=== PATIENT | female | born 1975 | race Caucasian/White ===

== ENCOUNTER 2019-01-15 21:22 | Emergency (ER) | payer SELFPAY ==
--- NOTE | 2019-01-15 23:07 | ED.PDOC ---
History of Present Illness - General Chief Complaint: Neuro Symptoms/Deficits Stated Complaint: Dizzy, light-headed, hit head on pool slide Time Seen by Provider: 01/15/19 23:02 Source: patient Exam Limitations: no limitations - History of Present Illness Initial Comments: Mrya Gardner 43 y/o female stated going down the pool slide and back of her head hit the pool slide as she landed on the ground at about 2000H today.Denies LOC,blurry vision,nausea/vomiting,neck pains or hip pains but sharp pain back of head. Timing/Duration: 1-3 hours, constant Severity: moderate Improving Factors: nothing Worsening Factors: movement Associated Symptoms: other - see hpi Allergies/Adverse Reactions: Allergies Iodine Allergy (Verified 12/24/18 22:41) Lisinopril Allergy (Verified 12/24/18 22:41) Home Medications: Ambulatory Orders Amoxicillin & Pot Clavulanate [Augmentin Tab] 875 mg PO BID #14 tab 12/25/18 Review of Systems - Review of Systems Constitutional: States: no symptoms reported EENTM: States: no symptoms reported Respiratory: States: no symptoms reported Cardiology: States: no symptoms reported Gastrointestinal/Abdominal: States: no symptoms reported Genitourinary: States: no symptoms reported Musculoskeletal: States: no symptoms reported Skin: States: no symptoms reported Neurological: States: see HPI, headache Past Medical History (General) - Patient Medical History Hx Seizures: Yes Hx Stroke: No Hx Dementia: No Hx Asthma: Yes Hx of COPD: No Hx Cardiac Disorders: No Hx Congestive Heart Failure: No Hx Pacemaker: No Hx Hypertension: Yes Hx Thyroid Disease: No Hx Diabetes: No Hx Gastroesophageal Reflux: No Hx Renal Disease: No Hx Cancer: No Hx of HIV: No Hx Hepatitis C: No Hx MRSA: No Surgical History: cholecystectomy - Vaccination History Hx Tetanus, Diphtheria Vaccination: No Hx Influenza Vaccination: No Hx Pneumococcal Vaccination: No Immunizations Up to Date: No - Social History Hx Tobacco Use: No Hx Alcohol Use: No Hx Physical Abuse: No Hx Emotional Abuse: No Hx Suspected Abuse: No - Female History Patient is a Female of Child Bearing Age (10 -59 yrs old): Yes Hx Last Menstrual Period: 12/07/18 Patient : Yes - U/A in ER positive Family Medical History - Family History Mother Family History: Unknown Living Status: Hx Family Asthma: Yes - brothers Hx Cardiac Disease: Yes - brother Hx Family Cancer: Yes Hx Family;Other: Father of [place] Physical Exam - Physical Exam General Appearance: Alert, Comfortable, No apparent distress Eye Exam: bilateral normal Ears, Nose, Throat: hearing grossly normal, normal ENT inspection, normal pharynx Neck: non-tender, full range of motion, supple, normal inspection Respiratory: chest non-tender, lungs clear, normal breath sounds, no respiratory distress Cardiovascular/Chest: normal peripheral pulses, regular rate, rhythm, no murmur Peripheral Pulses: radial,right: 2+, radial,left: 2+ Gastrointestinal/Abdominal: normal bowel sounds, non tender, soft, no organomegaly Back Exam: no CVA tenderness, no vertebral tenderness Extremity: no pedal edema, no calf tenderness Skin Exam: other - scalp tenederness back of head Progress - Progress Progress: 01/15/19 23:10 Last Vital Signs Temp 98.7 F 01/15/19 21:24 Pulse 106 H 01/15/19 21:24 Resp 16 01/15/19 21:24 BP 141/88 01/15/19 21:24 Pulse Ox 96 01/15/19 21:24 - Results/Orders Results/Orders: Laboratory Tests 01/15/19 01/15/19 22:00 22:00 Urine Color Yellow Urine Appearance Clear Urine pH 6.0 Ur Specific [place] 1.020 Urine Protein Negative Urine Glucose (UA) Negative Urine Ketones Negative Urine Blood Trace-lysed H Urine Nitrite Negative Urine Bilirubin Negative Urine Urobilinogen 0.2 Ur Leukocyte Esterase Negative Urine RBC 0 Urine WBC 4 H Ur Epithelial Cells 3-5 Urine Bacteria Rare Urine HCG, Qual Positive Departure - Departure Clinical Impression: Elevated serum hCG Scalp contusion Qualifiers: Encounter type: initial encounter Qualified Code(s): S00.03XA - Contusion of s calp, initial encounter Headache Qualifiers: Headache type: unspecified Headache chronicity pattern: unspecified pattern Intractability: not intractable Qualified Code(s): R51 - Headache Time of Disposition: 23:13 Disposition: Discharge to Home or Self Care Condition: Fair Departure Forms: ED Discharge - Pt. Copy, Patient Portal Self Enrollment Instructions: Contusion (DC) Home Medications: Ambulatory Orders Amoxicillin & Pot Clavulanate [Augmentin Tab] 875 mg PO BID #14 tab 12/25/18 Additional Instructions: Ice pack to affected area 15 minutes 3 x a day during waking hours only for 3-4 days;Return to Emergency room as needed;Need to make appointment with Heating Unit Mechanic BECK[facility];May take Tylenol %00 mg 3 x a day as needed for pain/headache
[2019-01-15 23:14] VITALS: BP 152/95; O2SAT 98
[2019-01-15] MEDS ORDERED: ACETAMINOPHEN 325 MG TAB PO ONE (23:14)
[2019-01-15 23:28] VITALS: TEMP 98.6
== END 2019-01-15 23:25 | disposition home or self-care (01) ==
LOC: ER 21:22
DX: O9A.219 Injury, poisoning and certain other consequences of external causes complicating pregnancy, unspecified trimester (principal); S00.03XA Contusion of scalp, initial encounter; O99.519 Diseases of the respiratory system complicating pregnancy, unspecified trimester; J45.909 Unspecified asthma, uncomplicated; O10.919 Unspecified pre-existing hypertension complicating pregnancy, unspecified trimester; I10 Essential (primary) hypertension; O09.529 Supervision of elderly multigravida, unspecified trimester; Z32.01 Encounter for pregnancy test, result positive; Z3A.00 Weeks of gestation of pregnancy not specified; Z88.8 Allergy status to other drugs, medicaments and biological substances; Z91.041 Radiographic dye allergy status; W22.09XA Striking against other stationary object, initial encounter; Y92.34 Swimming pool (public) as the place of occurrence of the external cause

== ENCOUNTER 2019-01-17 | Emergency (ER) | payer SELFPAY | END 2019-01-17 16:31 | disposition home or self-care (01) ==

== ENCOUNTER 2019-02-14 01:36 | Emergency (ER) | payer SELFPAY ==
[2019-02-14] MEDS ORDERED: NITROGLYCERIN 0.4 MG 25 EA TAB SL ONE (01:44)
[2019-02-14] MEDS ORDERED: ASPIRIN (CHEWABLE) 81 MG TAB PO ONE (01:45)
[2019-02-14] MEDS ORDERED: HYDROcodone 7.5MG/APAP 325MG 1 EA TAB PO ONE (01:51)
[2019-02-14] MEDS ORDERED: POTASSIUM CHLORIDE ELIXIR 20 MEQ/15 ML UD PO ONE (02:15)
--- NOTE | 2019-02-14 02:17 | RAD ---
EXAM: XR Chest, 1 View CLINICAL HISTORY: The patient is 43 years old and is Female; chest pain TECHNIQUE: Frontal view of the chest. COMPARISON: Chest radiograph September 10, 2018. FINDINGS: LUNGS: Unremarkable. No consolidation. PLEURAL SPACE: Unremarkable. No pneumothorax. HEART: Unremarkable. No cardiomegaly. MEDIASTINUM: Unremarkable. BONES/JOINTS: Unremarkable. IMPRESSION: No acute cardiopulmonary process. Electronically signed by: Yelena Scott MD 02/14/2019 2:15 AM CDT
[2019-02-14 06:11] VITALS: TEMP 98
[2019-02-14] MEDS ORDERED: CIPROFLOXACIN 500 MG TAB PO ONE (06:31)
--- NOTE | 2019-02-14 06:39 | ED.PDOC ---
History of Present Illness - General Chief Complaint: Chest Pain/[place] Stated Complaint: chest pain Time Seen by Provider: 02/14/19 01:44 Source: patient Exam Limitations: no limitations - History of Present Illness Initial Comments: the patient is a 43-year-old female presenting to emergency room secondary to chest pain that started as she was lying down to go to bed. She has had atypical chest pains in the past and at some point someone wrote her for a bottle of nitroglycerin. She denies ever having had any catheterizations. No definitive known history of any coronary artery disease. She denies drug use. No palpitations. Chest pain is cramping in nature. It is largely reproducible with palpation over the pectoralis muscle on the left. No known trauma. The patient was recently and miscarried.chest pain is a little worse with movement of the left upper extremity but not so much with taking a deep breath. Timing/Duration: 1/2 hour Severity: moderate Improving Factors: nothing Worsening Factors: nothing Associated Symptoms: chest pain Allergies/Adverse Reactions: Allergies Iodine Allergy (Verified 02/14/19 01:45) Lisinopril Allergy (Verified 02/14/19 01:45) Home Medications: Ambulatory Orders Ciprofloxacin [Cipro] 500 mg PO BID #10 tab 02/14/19 Cyclobenzaprine HCl [Flexeril] 5 mg PO TID PRN #14 tab 02/14/19 Review of Systems - Review of Systems Constitutional: States: no symptoms reported EENTM: States: no symptoms reported Respiratory: States: no symptoms reported Cardiology: States: chest pain Gastrointestinal/Abdominal: States: no symptoms reported Genitourinary: States: no symptoms reported Musculoskeletal: States: see HPI Skin: States: no symptoms reported Neurological: States: anxiety Endocrine: States: no symptoms reported All other Systems: No Change from Baseline Past Medical History (General) - Patient Medical History Hx Seizures: Yes - Epileptic Hx Stroke: No Hx Dementia: No Hx Asthma: Yes Hx of COPD: No Hx Cardiac Disorders: Yes - Pt states she has an enlarged heart Hx Congestive Heart Failure: No Hx Pacemaker: No Hx Hypertension: Yes Hx Thyroid Disease: No Hx Diabetes: No Hx Gastroesophageal Reflux: No Hx Renal Disease: No Hx Cancer: No Hx of HIV: No Hx Hepatitis C: No Hx MRSA: No Surgical History: cholecystectomy - Vaccination History Hx Tetanus, Diphtheria Vaccination: Yes Hx Influenza Vaccination: Yes Hx Pneumococcal Vaccination: No Immunizations Up to Date: Yes - Social History Hx Tobacco Use: No Hx Chewing Tobacco Use: No Hx Alcohol Use: No Hx Substance Use: No Hx Substance Use Treatment: No Hx Depression: No Feels Threatened In Home Enviroment: No Feels Threatened In a Relationship: No Hx Physical Abuse: No Hx Emotional Abuse: No Hx Suspected Abuse: No - Activities of Daily Living Hospice Agency (if applicable):: None - Female History Patient is a Female of Child Bearing Age (10 -59 yrs old): Yes Hx Last Menstrual Period: 02/13/19 Patient : No - Triage Comment ED Triage Comment: Pt states that she began having chest pain that woke her up from sleep around 0020. Pt states that she took three nitroglycerin prior to arrival that did not help. Pt states that chest pain is radiating into her left arm. Pt states that pain is worse when pressure is put on her chest. Family Medical History - Family History Mother Family History: Unknown Living Status: Hx Family Asthma: Yes - brothers Hx Cardiac Disease: Yes - brother Hx Family Cancer: Yes Hx Family;Other: Father of [place] Physical Exam - Physical Exam General Appearance: Alert, Anxious, No apparent distress Eye Exam: bilateral normal Ears, Nose, Throat: hearing grossly normal, normal ENT inspection, normal pharynx Neck: full range of motion, supple Respiratory: lungs clear, normal breath sounds, no respiratory distress, no accessory muscle use, other - see history of present illness Cardiovascular/Chest: normal peripheral pulses, regular rate, rhythm, no edema Peripheral Pulses: radial,right: 2+, radial,left: 2+, dorsalis pedis,right: 2+, dorsalis pedis,left: 2+ Gastrointestinal/Abdominal: non tender - obese, soft Rectal Exam: deferred Back Exam: no CVA tenderness, no vertebral tenderness Extremity: normal range of motion, non-tender, normal inspection, no pedal edema, normal capillary refill Neurologic: alert, normal mood/affect - with the exception of being highly anxious, oriented x 3 Skin Exam: normal color Comments: EKG shows normal sinus rhythm at 75 bpm. Borderline R-wave progression. No definitive ST segment or T-wave changes indicative of ischemia. Normal QT interval. Chest x-ray shows no acute pathology. No evidence of fluid overload or infiltrate. Laboratory Results - last 24 hr 02/14/19 02/14/19 02/14/19 01:44 01:51 01:51 WBC 8.4 RBC 4.73 Hgb 13.2 Hct 39.6 MCV 83.6 MCH 27.8 MCHC 33.3 RDW 13.9 Plt Count 300 MPV 8.0 Absolute Neuts (auto) 5.50 Absolute Lymphs (auto) 2.10 Absolute Monos (auto) 0.60 Absolute Eos (auto) 0.20 Absolute Basos (auto) 0.10 Neutrophils % 65.0 Lymphocytes % 24.7 Monocytes % 7.6 Eosinophils % 2.1 Basophils % 0.6 PT 9.9 INR 0.99 PTT (SP) 24.7 Sodium 137 Potassium 3.3 L Chloride 105 Carbon Dioxide 23 Anion Gap 12.3 BUN 10 Creatinine 0.85 BUN/Creatinine Ratio 11.8 Random Glucose 115 H Serum Osmolality 273.8 L Calcium 9.1 Magnesium 2.0 Creatine Kinase 72 CK-MB (CK-2) 0.6 CK-MB (CK-2) % Not Reportable Troponin I < 0.02 B-Natriuretic Peptide 24.2 Serum HCG, Qual Negative Urine Color Urine Appearance Urine pH Ur Specific [place] Urine Protein Urine Glucose (UA) Urine Ketones Urine Blood Urine Nitrite Urine Bilirubin Urine Urobilinogen Ur Leukocyte Esterase Urine RBC Urine WBC Ur Epithelial Cells Urine Bacteria Urine Opiates Screen Negative Urine Barbiturates Negative Ur Phencyclidine Scrn Negative U Amphetamin/Meth Scrn Negative U Benzodiazepines Scrn Negative U Cocaine Metab Screen Negative U Cannabinoids Screen Negative 02/14/19 02/14/19 03:00 05:33 WBC RBC Hgb Hct MCV MCH MCHC RDW Plt Count MPV Absolute Neuts (auto) Absolute Lymphs (auto) Absolute Monos (auto) Absolute Eos (auto) Absolute Basos (auto) Neutrophils % Lymphocytes % Monocytes % Eosinophils % Basophils % PT INR PTT (SP) Sodium Potassium Chloride Carbon Dioxide Anion Gap BUN Creatinine BUN/Creatinine Ratio Random Glucose Serum Osmolality Calcium Magnesium Creatine Kinase 62 CK-MB (CK-2) 0.5 CK-MB (CK-2) % Not Reportable Troponin I < 0.02 B-Natriuretic Peptide Serum HCG, Qual Urine Color Yellow Urine Appearance Sl cloudy Urine pH 6.0 Ur Specific [place] >= 1.030 Urine Protein 30 Urine Glucose (UA) Negative Urine Ketones Negative Urine Blood Trace-lysed H Urine Nitrite Positive H Urine Bilirubin Negative Urine Urobilinogen 0.2 Ur Leukocyte Esterase Trace H Urine RBC 0 Urine WBC 40-50 H Ur Epithelial Cells 1-3 Urine Bacteria 3+ H Urine Opiates Screen Urine Barbiturates Ur Phencyclidine Scrn U Amphetamin/Meth Scrn U Benzodiazepines Scrn U Cocaine Metab Screen U Cannabinoids Screen Vital Signs (72 hours) 02/14/19 02/14/19 02/14/19 01:42 01:45 01:49 Temperature 98.7 F Pulse Rate 83 Pulse Rate [ 83 83 Monitor] Respiratory 20 20 Rate Blood Pressure 147/90 [Right Arm] O2 Sat by Pulse 99 96 Oximetry 02/14/19 02/14/19 02/14/19 02:36 03:00 04:00 Temperature Pulse Rate Pulse Rate [ 74 60 70 Monitor] Respiratory 20 20 18 Rate Blood Pressure 144/98 128/83 133/81 [Right Arm] O2 Sat by Pulse 97 95 95 Oximetry 02/14/19 02/14/19 05:00 06:00 Temperature 98.0 F Pulse Rate 60 Pulse Rate [ 60 79 Monitor] Respiratory 18 18 Rate Blood Pressure 120/82 141/96 [Right Arm] O2 Sat by Pulse 96 96 Oximetry Progress - Progress Progress: 02/14/19 06:42 the patient is a 43-year-old female presenting with atypical chest pain that is most consistent clinically with pectoralis muscle spasm. The patient did have a repeat set of cardiac enzymes at 3 hours after arrival to make sure that there was no rise in heart enzymes which there were not. EKG and chest x-ray were also reassuring. she was also found to have mild hypokalemia which may contributing to the muscle spasm as well as mild dehydration based on urine concentration. Additionally she does have a urinary tract infection. The patient will be placed on ciprofloxacin for the urinary tract infection. Urine culture will be done. She needs to follow back up with her primary care doctor early in the coming week for a repeat urinalysis to indicate clearance. she will also be written for low-dose Flexeril for symptomatic relief of the muscle spasm. She does need to increase her fluid intake. she was given a dose of potassium here and this will need to be followed as an outpatient. She needs to follow up with her primary care doctor to get back on her routine medications. ER warnings were given for any significant worsening. 02/14/19 06:45 - EKG/XRAY/CT CT Ordered: No CT Interpretation Call Back: No Departure - Departure Clinical Impression: Cystitis, Atypical chest pain, Muscle spasm, Dehydration, mild, Hypokalemia Disposition: Discharge to Home or Self Care Condition: Fair Departure Forms: ED Discharge - Pt. Copy, Patient Portal Self Enrollment Instructions: Hypokalemia (DC), Dehydration, Adult (DC), Muscle Spasms (DC), Urinary Tract Infections in Adults Diet: bland diet Activity: increase activity as tolerated Prescriptions: Ciprofloxacin [Cipro] 500 mg PO BID #10 tab Cyclobenzaprine HCl [Flexeril] 5 mg PO TID PRN #14 tab PRN Reason: Muscle Spasms Home Medications: Ambulatory Orders Ciprofloxacin [Cipro] 500 mg PO BID #10 tab 02/14/19 Cyclobenzaprine HCl [Flexeril] 5 mg PO TID PRN #14 tab 02/14/19 Additional Instructions: the patient is a 43-year-old female presenting with atypical chest pain that is most consistent clinically with pectoralis muscle spasm. The patient did have a repeat set of cardiac enzymes at 3 hours after arrival to make sure that there was no rise in heart enzymes which there were not. EKG and chest x-ray were also reassuring. she was also found to have mild hypokalemia which may contributing to the muscle spasm as well as mild dehydration based on urine concentration. Additionally she does have a urinary tract infection. The patient will be placed on ciprofloxacin for the urinary tract infection. Urine culture will be done. She needs to follow back up with her primary care doctor early in the coming week for a repeat urinalysis to indicate clearance. she will also be written for low-dose Flexeril for symptomatic relief of the muscle spasm. She does need to increase her fluid intake. she was given a dose of p otassium here and this will need to be followed as an outpatient. She needs to follow up with her primary care doctor to get back on her routine medications. ER warnings were given for any significant worsening.
[2019-02-14 07:06] VITALS: BP 118/90; O2SAT 100
== END 2019-02-14 07:06 | disposition home or self-care (01) ==
LOC: ER 01:36
DX: R07.89 Other chest pain (principal); N30.90 Cystitis, unspecified without hematuria; M62.838 Other muscle spasm; E86.0 Dehydration; E87.6 Hypokalemia; G40.909 Epilepsy, unspecified, not intractable, without status epilepticus; I51.9 Heart disease, unspecified; J45.909 Unspecified asthma, uncomplicated; I10 Essential (primary) hypertension; Z82.49 Family history of ischemic heart disease and other diseases of the circulatory system; Z91.041 Radiographic dye allergy status; Z88.8 Allergy status to other drugs, medicaments and biological substances

== ENCOUNTER 2019-02-19 22:42 | Emergency (ER) | payer SELFPAY ==
[2019-02-19 23:05] VITALS: O2SAT 98
[2019-02-20] MEDS ORDERED: KETOROLAC TROMETHAMINE INJ 60 MG/2 ML VIAL IM ONE (01:01)
[2019-02-20] MEDS ORDERED: PENICILLIN BENZATHINE 1.2 MU 1.2 MU/2 ML SYG IM ONE (01:01)
--- NOTE | 2019-02-20 01:07 | ED.PDOC ---
History of Present Illness - General Chief Complaint: Dental/Mouth Stated Complaint: toothache Time Seen by Provider: 02/20/19 00:56 Source: patient Exam Limitations: no limitations - History of Present Illness Initial Comments: TOOTHACHE. TOOTH BROKE OFF 3 WKS AGO. WAS TO HAVE DENTAL APPT TODAY BUT CAR WASN'T WORKING. PT ADMITS TO NOT TAKING HER BP MEDS. Allergies/Adverse Reactions: Allergies Iodine Allergy (Verified 02/14/19 01:45) Lisinopril Allergy (Verified 02/14/19 01:45) Home Medications: Ambulatory Orders Amlodipine Besylate 02/19/19 Dilantin 02/19/19 Metoprolol Succinate 02/19/19 Amoxicillin & Pot Clavulanate [Augmentin] 875 mg PO BID #20 tab 02/20/19 Review of Systems - Review of Systems Constitutional: Denies: chills, fever EENTM: Denies: ear pain, nose pain Respiratory: States: no symptoms reported Cardiology: States: no symptoms reported Gastrointestinal/Abdominal: States: no symptoms reported Genitourinary: States: no symptoms reported Musculoskeletal: States: no symptoms reported Skin: States: no symptoms reported Neurological: States: no symptoms reported Endocrine: States: no symptoms reported Hematologic/Lymphatic: States: no symptoms reported All other Systems: Reviewed and Negative Past Medical History (General) - Patient Medical History Hx Seizures: Yes - Epileptic Hx Stroke: No Hx Dementia: No Hx Asthma: Yes Hx of COPD: No Hx Cardiac Disorders: Yes - Pt states she has an enlarged heart Hx Congestive Heart Failure: No Hx Pacemaker: No Hx Hypertension: Yes Hx Thyroid Disease: No Hx Diabetes: No Hx Gastroesophageal Reflux: No Hx Renal Disease: No Hx Cancer: No Hx of HIV: No Hx Hepatitis C: No Hx MRSA: No Surgical History: cholecystectomy - Vaccination History Hx Tetanus, Diphtheria Vaccination: Yes Hx Influenza Vaccination: Yes Hx Pneumococcal Vaccination: No - Social History Hx Tobacco Use: No Hx Chewing Tobacco Use: No Hx Alcohol Use: No Hx Substance Use: No Hx Substance Use Treatment: No Hx Depression: No Hx Physical Abuse: No Hx Emotional Abuse: No Hx Suspected Abuse: No - Female History Hx Last Menstrual Period: 02/13/19 Patient : No - Triage Comment ED Triage Comment: Patient states her tooth broke off 3 days ago and missed her dental appointment today. She is also out of her blood pressure medication for months and has elevated BP Family Medical History - Family History Mother Family History: Unknown Living Status: Hx Family Asthma: Yes - brothers Hx Cardiac Disease: Yes - brother Hx Family Cancer: Yes Hx Family;Other: Father of [place] Physical Exam - Physical Exam General Appearance: Comfortable, Other - IS ASLEEP IN THE ROOM. Eye Exam: bilateral normal Ear Exam: bilateral ear: TM normal Nasal Exam: normal inspection Throat Exam: dental tenderness, other - L MANDIBLAR MOLAR TOOTH IS FRACTURED. BLACKENED WITH DENTAL DECAY. EXQUISTELY TTP. PT HAS VERY POOR DENTITION AND SEVERAL TEETH MISSING. Neck: non-tender, full range of motion, supple, normal inspection Skin Exam: normal color, warm/dry Progress - Progress Progress: 02/20/19 01:12 DENTAL CARIES - ABX. Departure - Departure Clinical Impression: Dental caries, Odontalgia Disposition: Discharge to Home or Self Care Condition: Good Departure Forms: ED Discharge - Pt. Copy, Patient Portal Self Enrollment Instructions: DI for Dental Pain Diet: resume usual diet Activity: increase activity as tolerated Prescriptions: Amoxicillin & Pot Clavulanate [Augmentin] 875 mg PO BID #20 tab Home Medications: Ambulatory Orders Amlodipine Besylate 02/19/19 Dilantin 02/19/19 Metoprolol Succinate 02/19/19 Amoxicillin & Pot Clavulanate [Augmentin] 875 mg PO BID #20 tab 02/20/19 Additional Instructions: Please resume taking your home blood pressure medications. Please keep the dentist appointment for next Monday for definitive care of the toothache.
[2019-02-20 01:29] VITALS: BP 177/110; TEMP 98.1
== END 2019-02-20 01:29 | disposition home or self-care (01) ==
LOC: ER 22:42
DX: K02.9 Dental caries, unspecified (principal); S02.5XXA Fracture of tooth (traumatic), initial encounter for closed fracture; K08.109 Complete loss of teeth, unspecified cause, unspecified class; G40.909 Epilepsy, unspecified, not intractable, without status epilepticus; I10 Essential (primary) hypertension; J45.909 Unspecified asthma, uncomplicated; X58.XXXA Exposure to other specified factors, initial encounter; Y92.9 Unspecified place or not applicable; Z79.899 Other long term (current) drug therapy; Z91.041 Radiographic dye allergy status; Z88.8 Allergy status to other drugs, medicaments and biological substances
CPT/HCPCS: J0561; J1885

== ENCOUNTER 2019-05-17 17:46 | Emergency (ER) | payer SELFPAY ==
[2019-05-17 18:22] VITALS: TEMP 97.9
--- NOTE | 2019-05-17 18:54 | RAD ---
EXAM DESCRIPTION: XR Chest, 2 Views CLINICAL HISTORY: 43 years Female cough, sore throat, hx asthma TECHNIQUE: Two views of the chest. COMPARISON: No prior exams provided for comparison. FINDINGS: The lungs are clear without focal consolidation, effusion, or pneumothorax. The cardiomediastinal silhouette and central pulmonary vasculature are normal. No acute osseous abnormalities. IMPRESSION: No acute cardiopulmonary abnormalities. Electronically signed by: Radha Isaac MD 05/17/2019 6:53 PM CDT
--- NOTE | 2019-05-17 19:33 | ED.PDOC ---
History of Present Illness - General Chief Complaint: Respiratory Problem Stated Complaint: cough,body aches Time Seen by Provider: 05/17/19 18:19 Source: patient Exam Limitations: no limitations - History of Present Illness Initial Comments: the patient is a 43-year-old female presenting to emergency room secondary tocough congestion and mild shortness of breath for the last 2-3 days. She does have a history of asthma but has been taking care of that fairly well. She does have a history of seasonal allergies. There are multiple colds going around. She is not hypoxic or in respiratory distress. Timing/Duration: other - 2 days Severity: mild Improving Factors: nothing Worsening Factors: nothing Associated Symptoms: cough, shortness of breath - mild Allergies/Adverse Reactions: Allergies Iodine Allergy (Verified 02/14/19 01:45) Lisinopril Allergy (Verified 02/14/19 01:45) Home Medications: Ambulatory Orders predniSONE [Prednisone] 20 mg PO DAILY #3 tab 05/17/19 Review of Systems - Review of Systems Constitutional: States: malaise EENTM: States: nose congestion, throat pain - mild Respiratory: States: cough, short of breath - mild Cardiology: States: no symptoms reported Gastrointestinal/Abdominal: States: no symptoms reported Genitourinary: States: no symptoms reported Musculoskeletal: States: no symptoms reported Skin: States: no symptoms reported Neurological: States: no symptoms reported Endocrine: States: no symptoms reported All other Systems: No Change from Baseline Past Medical History (General) - Patient Medical History Hx Seizures: Yes - Epileptic Hx Stroke: No Hx Dementia: No Hx Asthma: Yes Hx of COPD: No Hx Cardiac Disorders: Yes - Pt states she has an enlarged heart Hx Congestive Heart Failure: No Hx Pacemaker: No Hx Hypertension: Yes Hx Thyroid Disease: No Hx Diabetes: No Hx Gastroesophageal Reflux: No Hx Renal Disease: No Hx Cancer: No Hx of HIV: No Hx Hepatitis C: No Hx MRSA: No Surgical History: cholecystectomy - Vaccination History Hx Tetanus, Diphtheria Vaccination: Yes Hx Influenza Vaccination: No Hx Pneumococcal Vaccination: No - Social History Hx Tobacco Use: No Hx Chewing Tobacco Use: No Hx Alcohol Use: No Hx Substance Use: No Hx Substance Use Treatment: No Hx Depression: No Hx Physical Abuse: No Hx Emotional Abuse: No Hx Suspected Abuse: No - Female History Patient is a Female of Child Bearing Age (10 -59 yrs old): Yes Hx Last Menstrual Period: 02/13/19 Patient : No Family Medical History - Family History Mother Family History: Unknown Living Status: Hx Family Asthma: Yes - brothers Hx Cardiac Disease: Yes - brother Hx Family Cancer: Yes Hx Family;Other: Father of [place] Physical Exam - Physical Exam General Appearance: Alert, Comfortable, No apparent distress Eye Exam: bilateral normal Ears, Nose, Throat: hearing grossly normal, normal pharynx, nasal congestion Neck: full range of motion, supple Respiratory: lungs clear, normal breath sounds, no respiratory distress, no accessory muscle use Cardiovascular/Chest: normal peripheral pulses, regular rate, rhythm, no edema Peripheral Pulses: radial,right: 2+, radial,left: 2+, dorsalis pedis,right: 2+, dorsalis pedis,left: 2+ Gastrointestinal/Abdominal: non tender, soft Rectal Exam: deferred Back Exam: no CVA tenderness, no vertebral tenderness Extremity: non-tender, normal inspection, no pedal edema, no calf tenderness, normal capillary refill 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 The patient is continue her routine medications. I'm going to add prednisone 20 mg once daily for the next 3 days to help reduce symptoms. A humidifier at night may also help symptoms along with some ibuprofen. If she is having excessive runny nose and she can add Zyrtec daily to that. Chest x-ray shows no evidence of any significant bronchitis or pneumonia. No respiratory distress. Keep routine follow-up with primary care doctor. ayse acevedo [id number] Departure - Departure Clinical Impression: Asthma with exacerbation Qualifiers: Asthma severity: mild Asthma persistence: intermittent Qualified Code(s): J45.21 - Mild intermittent asthma with (acute) exacerbation Rhinitis Qualifiers: Rhinitis type: acute Qualified Code(s): J00 - Acute nasopharyngitis [common cold] Disposition: Discharge to Home or Self Care Condition: Fair Departure Forms: ED Discharge - Pt. Copy, Patient Portal Self Enrollment Instructions: DI for Asthma -- Adult Diet: regular diet Activity: increase activity as tolerated Prescriptions: predniSONE [Prednisone] 20 mg PO DAILY #3 tab Home Medications: Ambulatory Orders predniSONE [Prednisone] 20 mg PO DAILY #3 tab 05/17/19 Additional Instructions: the patient's a 43-year-old female presenting to the emergency room secondary to primarily upper respiratory symptoms and what is likely a mild asthma exacerbation. The patient is continue her routine medications. I'm going to add prednisone 20 mg once daily for the next 3 days to help reduce symptoms. A humidifier at night may also help symptoms along with some ibuprofen. If she is having excessive runny nose and she can add Zyrtec daily to that. Chest x-ray shows no evidence of any significant bronchitis or pneumonia. No respiratory distress. Keep routine follow-up with primary care doctor. the patient also does need to follow up with her primary care doctor for her blood pressure. It was moderately elevated here but possibly due to cold medications.
[2019-05-17 19:35] VITALS: BP 130/98; O2SAT 97
[2019-05-17] MEDS ORDERED: predniSONE 20 MG TAB PO ONE (19:35)
== END 2019-05-17 19:45 | disposition home or self-care (01) ==
LOC: ER 17:46
DX: J45.21 Mild intermittent asthma with (acute) exacerbation (principal); J00 Acute nasopharyngitis [common cold]; G40.909 Epilepsy, unspecified, not intractable, without status epilepticus; I10 Essential (primary) hypertension; Z91.041 Radiographic dye allergy status; Z88.8 Allergy status to other drugs, medicaments and biological substances
CPT/HCPCS: 71046; J7512

== ENCOUNTER 2019-06-05 23:35 | Emergency (ER) | payer SELFPAY ==
[2019-06-05] MEDS ORDERED: diazePAM 5 MG TAB PO ONE (23:39)
[2019-06-05] MEDS ORDERED: ACETAMINOPHEN W/COD #3 TAB 1 EA TAB PO ONE (23:39)
--- NOTE | 2019-06-05 23:42 | ED.PDOC ---
History of Present Illness - General Time Seen by Provider: 06/05/19 23:36 Source: patient, RN notes reviewed, Vital Signs reviewed, EMS notes reviewed, EMS Exam Limitations: no limitations - History of Present Illness Initial Comments: "My right knee locked up" States she was lying in bed 1 hour [employer] and suddenly right knee locked in extended position and has not been able to bend it. Denies any fall or trauma to her leg recently. Has had this happen in the past, but the last episode was 10 years ago. Took Tylenol at home w/o relief. Denies CP, calf pain, SOB. Allergies/Adverse Reactions: Allergies Iodine Allergy (Verified 02/14/19 01:45) Lisinopril Allergy (Verified 02/14/19 01:45) Home Medications: Ambulatory Orders predniSONE [Prednisone] 20 mg PO DAILY #3 tab 05/17/19 Review of Systems - Review of Systems Constitutional: Denies: chills, fever Respiratory: Denies: cough, short of breath Cardiology: Denies: chest pain, edema, palpitations, syncope Musculoskeletal: States: joint pain - right knee with decreased ROM All other Systems: Reviewed and Negative Past Medical History (General) - Patient Medical History Hx Seizures: Yes - Epileptic Hx Stroke: No Hx Dementia: No Hx Asthma: Yes Hx of COPD: No Hx Cardiac Disorders: Yes - Pt states she has an enlarged heart Hx Congestive Heart Failure: No Hx Pacemaker: No Hx Hypertension: Yes Hx Thyroid Disease: No Hx Diabetes: No Hx Gastroesophageal Reflux: No Hx Renal Disease: No Hx Cancer: No Hx of HIV: No Hx Hepatitis C: No Hx MRSA: No - Vaccination History Hx Tetanus, Diphtheria Vaccination: Yes Hx Influenza Vaccination: No Hx Pneumococcal Vaccination: No - Social History Hx Tobacco Use: No Hx Chewing Tobacco Use: No Hx Alcohol Use: No Hx Substance Use: No Hx Substance Use Treatment: No Hx Depression: No Hx Physical Abuse: No Hx Emotional Abuse: No Hx Suspected Abuse: No - Female History Hx Last Menstrual Period: 02/13/19 Patient : No Family Medical History - Family History Mother Family History: Unknown Living Status: Hx Family Asthma: Yes - brothers Hx Cardiac Disease: Yes - brother Hx Family Cancer: Yes Hx Family;Other: Father of [place] Physical Exam - Physical Exam General Appearance: Alert, Comfortable, No apparent distress Neck: non-tender, full range of motion Cardiovascular/Respiratory: regular rate, rhythm, normal breath sounds, no respiratory distress Gastrointestinal/Abdominal: non-tender, other - NTTP, no guarding Back: normal inspection, no vertebral tenderness Skin: normal color, warm/dry Comments: Right knee is held in extended position. It is diffusely TTP with no erythema, warmth or effusion. Has 2+ DP and PT pulses. No calf tenderness. She is able to flex right knee to about 20 degrees, then stops due to pain. Progress - Progress Progress: 06/05/19 23:45 Presents for right knee pain and "locked up" feeling. No sign of DVT. This occured while lying still in bed, no trauma or injury. Appears to be more muscle spasm related by exam and history, but will get xray to r/o dislocation/fracture. 06/06/19 00:14 Patient has improved ROM post Valium. xray negative. RICE, WBAT, crutches given. will f/u with Dr. Swenson in 2-3 days if not improving. - EKG/XRAY/CT XRAY: knee Xray Comments: no fracture or dislocation Departure - Departure Clinical Impression: Right knee pain Qualifiers: Chronicity: acute Qualified Code(s): M25.561 - Pain in right knee Time of Disposition: 00:15 Disposition: Discharge to Home or Self Care Condition: Good Departure Forms: ED Discharge - Pt. Copy, Patient Portal Self Enrollment Instructions: DI for Knee Pain Activity: walking as tolerated Referrals: Donavon Swenson MD [Active Staff] - 1-2 Days Home Medications: Ambulatory Orders predniSONE [Prednisone] 20 mg PO DAILY #3 tab 05/17/19 Comments: Take Ibuprofen as needed for pain
[2019-06-06 00:35] VITALS: BP 154/78; TEMP 98.1; O2SAT 96
--- NOTE | 2019-06-06 10:17 | RAD ---
EXAM DESCRIPTION: Knee,Right 2 or More Views CLINICAL HISTORY: 43 years Female, Knee Pain COMPARISON: None. FINDINGS: No evidence for an acute fracture of the right knee. No dislocation. Mild degenerative changes noted. No joint effusion. A few small rounded well corticated calcific densities in the soft tissues posteriorly are noted. IMPRESSION: No evidence for an acute fracture of the right knee. Electronically signed by: Tavares Moya MD 06/06/2019 12:09 AM [facility]
== END 2019-06-06 00:36 | disposition home or self-care (01) ==
LOC: ER 23:35
DX: M25.561 Pain in right knee (principal); G40.909 Epilepsy, unspecified, not intractable, without status epilepticus; J45.909 Unspecified asthma, uncomplicated; I10 Essential (primary) hypertension; Z88.8 Allergy status to other drugs, medicaments and biological substances; Z91.041 Radiographic dye allergy status

== ENCOUNTER 2019-07-13 19:17 | Emergency (ER) | payer SELFPAY ==
[2019-07-13] MEDS ORDERED: IPRATROPIUM/ALBUTEROL 3 ML VIAL NEB ONE (19:22)
[2019-07-13] MEDS ORDERED: predniSONE 20 MG TAB PO ONE (19:47)
[2019-07-13] MEDS ORDERED: traMADol HCL 50 MG TAB PO ONE (19:47)
--- NOTE | 2019-07-13 19:56 | RAD ---
EXAM: XR Chest, 2 Views CLINICAL HISTORY: 43 years old Female; cough with chest pain. TECHNIQUE: Frontal and lateral views of the chest. COMPARISON: Similar examination performed 05/17/2019 which demonstrated no acute cardiopulmonary abnormality by report. FINDINGS: LUNGS: Lungs clear of new focal infiltrate or mass. PLEURAL SPACE: No increasing pleural fluid. No pneumothorax. HEART: Heart size stable. MEDIASTINUM: Unremarkable. BONES/JOINTS: No acute bony abnormality seen. IMPRESSION: - No acute cardiopulmonary pathology seen and no interval change from a similar examination performed 05/17/2019. Thank you for allowing us to participate in the care of this patient. Electronically signed by: Wali Han MD 07/13/2019 7:54 PM [employer]
--- NOTE | 2019-07-13 20:27 | ED.PDOC ---
History of Present Illness - General Chief Complaint: Respiratory Problem Stated Complaint: SOB, chest discomfort Time Seen by Provider: 07/13/19 19:21 Source: patient Exam Limitations: no limitations - History of Present Illness Initial Comments: the patient's a 43-year-old female presenting to emergency room secondary to symptoms of cough along with a mild sore throat and runny nose. It started this morning. Cough has been very persistent and harsh. The patient is an asthmatic and has been flaring a little bit. She is moving air well at this point. She has coughed to the point where her chest muscles are sore. She reports she has had a low-grade fever. She has a history of recurrent pneumonias apparently in the past.she does obviously have a laryngitis component. Timing/Duration: 24 hours Severity: moderate Improving Factors: nothing Worsening Factors: nothing Associated Symptoms: cough, fever/chills Allergies/Adverse Reactions: Allergies Iodine Allergy (Verified 07/13/19 19:56) Lisinopril Allergy (Verified 07/13/19 19:56) Home Medications: Ambulatory Orders Azithromycin 500 mg PO DAILY #5 tab 07/13/19 predniSONE [Prednisone] 20 mg PO DAILY #5 tab 07/13/19 Review of Systems - Review of Systems Constitutional: States: fever, malaise EENTM: States: nose congestion, throat pain Respiratory: States: cough Cardiology: States: no symptoms reported Gastrointestinal/Abdominal: States: no symptoms reported Genitourinary: States: no symptoms reported Musculoskeletal: States: no symptoms reported Skin: States: no symptoms reported Neurological: States: no symptoms reported Endocrine: States: no symptoms reported All other Systems: No Change from Baseline Past Medical History (General) - Patient Medical History Hx Seizures: Yes - Epileptic Hx Stroke: No Hx Dementia: No Hx Asthma: Yes Hx of COPD: No Hx Cardiac Disorders: Yes - Pt states she has an enlarged heart Hx Congestive Heart Failure: No Hx Pacemaker: No Hx Hypertension: Yes Hx Thyroid Disease: No Hx Diabetes: No Hx Gastroesophageal Reflux: No Hx Renal Disease: No Hx Cancer: No Hx of HIV: No Hx Hepatitis C: No Hx MRSA: No Surgical History: cholecystectomy - Vaccination History Hx Tetanus, Diphtheria Vaccination: Yes Hx Influenza Vaccination: No Hx Pneumococcal Vaccination: No - Social History Hx Tobacco Use: No Hx Chewing Tobacco Use: No Hx Alcohol Use: No Hx Substance Use: No Hx Substance Use Treatment: No Hx Depression: No Hx Physical Abuse: No Hx Emotional Abuse: No Hx Suspected Abuse: No - Female History Patient is a Female of Child Bearing Age (10 -59 yrs old): Yes Hx Last Menstrual Period: 02/13/19 Patient : No Family Medical History - Family History Mother Family History: Unknown Living Status: Hx Family Asthma: Yes - brothers Hx Cardiac Disease: Yes - brother Hx Family Cancer: Yes Hx Family;Other: Father of [place] Physical Exam - Physical Exam General Appearance: Alert, No apparent distress Eye Exam: bilateral normal Ears, Nose, Throat: hearing grossly normal, nasal congestion, pharyngeal erythema - mild Neck: full range of motion, supple Respiratory: no respiratory distress, no accessory muscle use, rhonchi Cardiovascular/Chest: normal peripheral pulses, regular rate, rhythm, no edema Peripheral Pulses: radial,right: 2+, radial,left: 2+ Gastrointestinal/Abdominal: non tender, soft Rectal Exam: deferred Back Exam: no CVA tenderness, no vertebral tenderness Extremity: normal range of motion, non-tender, normal inspection, no pedal edema, normal capillary refill 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 While this is most likely viral, patient will be covered for possible bacterial etiologies given her significant asthma history. She will be covered with azithromycin for next 5 days. Additionally she'll be written for prednisone for the asthma component as well. She does need to do her breathing treatments 2-3 times a day while she has this process in place. Motrin can be used to reduce symptoms, including chest discomfort from the cough, as well. She needs to keep herself well-hydrated. ER warnings are given for any acute worsening. Follow back up with primary care doctor towards the end of the week. a humidifier may provide some benefit. Liquid Robitussin can be used as a mild cough suppressant. ayse acevedo [id number] - Results/Orders Results/Orders: chest x-ray shows mild air trapping. No obviousinfiltrates. Laboratory Tests 07/13/19 07/13/19 07/13/19 19:21 19:21 19:22 WBC 8.5 RBC 4.97 Hgb 13.6 Hct 40.7 MCV 81.9 MCH 27.4 MCHC 33.5 RDW 13.7 Plt Count 315 MPV 8.2 Absolute Neuts (auto) 5.60 Absolute Lymphs (auto) 2.00 Absolute Monos (auto) 0.50 Absolute Eos (auto) 0.30 Absolute Basos (auto) 0.00 Neutrophils % 66.0 Lymphocytes % 23.7 Monocytes % 6.3 Eosinophils % 3.5 Basophils % 0.5 Sodium 136 Potassium 3.8 Chloride 104 Carbon Dioxide 25 Anion Gap 10.8 L BUN 12 Creatinine 0.79 BUN/Creatinine Ratio 15.2 Random Glucose 96 Serum Osmolality 271.6 L Calcium 9.0 Total Bilirubin 0.5 AST 24 ALT 25 Alkaline Phosphatase 80 Creatine Kinase 61 CK-MB (CK-2) 0.9 CK-MB (CK-2) % Not Reportable Troponin I < 0.02 B-Natriuretic Peptide 37.8 Serum Total Protein 7.6 Albumin 4.1 Globulin 3.5 Albumin/Globulin Ratio 1.2 Serum HCG, Qual Negative Departure - Departure Clinical Impression: Acute asthma, Bronchitis with acute wheezing, Laryngitis Disposition: Discharge to Home or Self Care Condition: Fair Departure Forms: ED Discharge - Pt. Copy, Patient Portal Self Enrollment Instructions: DI for Asthma -- Adult Diet: regular diet Activity: increase activity as tolerated Prescriptions: Azithromycin 500 mg PO DAILY #5 tab predniSONE [Prednisone] 20 mg PO DAILY #5 tab Home Medications: Ambulatory Orders Azithromycin 500 mg PO DAILY #5 tab 07/13/19 predniSONE [Prednisone] 20 mg PO DAILY #5 tab 07/13/19 Additional Instructions: the patient is a 43-year-old female presenting to emergency room with what appears to be laryngitis and bronchitis. While this is most likely viral, patient will be covered for possible bacterial etiologies given her significant asthma history. She will be covered with azithromycin for next 5 days. Additionally she'll be written for prednisone for the asthma component as well. She does need to do her breathing treatments 2-3 times a day while she has this process in place. Motrin can be used to reduce symptoms, including chest discomfort from the cough, as well. She needs to keep herself well-hydrated. ER warnings are given for any acute worsening. Follow back up with primary care doctor towards the end of the week. a humidifier may provide some benefit. Liquid Robitussin can be used as a mild cough suppressant.
[2019-07-13 20:53] VITALS: BP 155/98; TEMP 97; O2SAT 98
== END 2019-07-13 20:57 | disposition home or self-care (01) ==
LOC: ER 19:17
DX: J45.901 Unspecified asthma with (acute) exacerbation (principal); J04.0 Acute laryngitis; I10 Essential (primary) hypertension; I51.9 Heart disease, unspecified; G40.909 Epilepsy, unspecified, not intractable, without status epilepticus; Z91.041 Radiographic dye allergy status; Z88.8 Allergy status to other drugs, medicaments and biological substances
CPT/HCPCS: 71046; 80053; 82550; 82553; 83880; 84484; 84703; 85025; 87502; J7512; J7620

== ENCOUNTER 2019-10-28 14:57 | Emergency (ER) | payer SELFPAY ==
[2019-10-28] MEDS ORDERED: AZITHROMYCIN 250 MG TAB PO ONE (15:04)
[2019-10-28] MEDS ORDERED: predniSONE 20 MG TAB PO ONE (15:04)
--- NOTE | 2019-10-28 15:31 | RAD ---
EXAM DESCRIPTION: Chest,1 View CLINICAL HISTORY: 44 years Female, sob, cough 2 weeks COMPARISON: Previous study July 13, 2019 TECHNIQUE: AP portable chest. FINDINGS: Heart size is prominent with normal pulmonary vascularity. No consolidating infiltrate. No pulmonary mass or worrisome nodule. No pneumothorax or pleural effusion. Bones are unremarkable. IMPRESSION: No acute process is identified in the chest. Electronically signed by: Andry Sloan MD 10/28/2019 3:29 PM CDT
--- NOTE | 2019-10-28 16:04 | ED.PDOC ---
History of Present Illness - General Chief Complaint: Respiratory Problem Stated Complaint: shortness of breath Time Seen by Provider: 10/28/19 15:03 Source: patient Exam Limitations: no limitations - History of Present Illness Initial Comments: The patient is a 44-year-old female with a history of asthma presenting after what is essentially a two-week asthma exacerbation. She is doing an albuterol breathing treatment once every 8 hours. She does have some shortness of breath but is not hypoxic. She is not in respiratory distress. No fever. Cough is minimally productive. No runny nose or sore throat. No syncope or near syncope. The cough is very persistent. No rash. Chest pain only with cough. She has been out of her Flovent. No above average risk for coronavirus acquisition. Timing/Duration: other - 2 weeks Severity: moderate Improving Factors: nothing Worsening Factors: nothing Associated Symptoms: cough, shortness of breath Allergies/Adverse Reactions: Allergies Iodine Allergy (Verified 07/13/19 19:56) Lisinopril Allergy (Verified 07/13/19 19:56) Home Medications: Ambulatory Orders Azithromycin 500 mg PO DAILY #5 tab 07/13/19 predniSONE [Prednisone] 20 mg PO DAILY #5 tab 07/13/19 Azithromycin 500 mg PO DAILY #5 tab 10/28/19 Fluticasone Propionate Inhaler [Flovent 220 MCG Inhaler] 1 puff INH BID #1 inh 10/28/19 predniSONE [Prednisone] 20 mg PO DAILY #5 tab 10/28/19 Review of Systems - Review of Systems Constitutional: States: no symptoms reported EENTM: States: no symptoms reported Respiratory: States: cough, short of breath, wheezing Cardiology: Denies: chest pain - wi cough Gastrointestinal/Abdominal: States: no symptoms reported Genitourinary: States: no symptoms reported Musculoskeletal: States: no symptoms reported Skin: States: no symptoms reported Neurological: States: no symptoms reported Endocrine: States: no symptoms reported All other Systems: No Change from Baseline Past Medical History (General) - Patient Medical History Hx Seizures: Yes - Epileptic Hx Stroke: No Hx Dementia: No Hx Asthma: Yes Hx of COPD: No Hx Cardiac Disorders: Yes - Pt states she has an enlarged heart Hx Congestive Heart Failure: No Hx Pacemaker: No Hx Hypertension: Yes Hx Thyroid Disease: No Hx Diabetes: No Hx Gastroesophageal Reflux: No Hx Renal Disease: No Hx Cancer: No Hx of HIV: No Hx Hepatitis C: No Hx MRSA: No - Vaccination History Hx Tetanus, Diphtheria Vaccination: Yes Hx Influenza Vaccination: No Hx Pneumococcal Vaccination: No - Social History Hx Tobacco Use: No Hx Chewing Tobacco Use: No Hx Alcohol Use: No Hx Substance Use: No Hx Substance Use Treatment: No Hx Depression: No Hx Physical Abuse: No Hx Emotional Abuse: No Hx Suspected Abuse: No - Female History Patient is a Female of Child Bearing Age (10 -59 yrs old): Yes Hx Last Menstrual Period: 02/13/19 Patient : No Family Medical History - Family History Mother Family History: Unknown Living Status: Hx Family Asthma: Yes - brothers Hx Cardiac Disease: Yes - brother Hx Family Cancer: Yes Hx Family;Other: Father of [place] Physical Exam - Physical Exam General Appearance: Alert, Comfortable, No apparent distress Eye Exam: bilateral normal Ears, Nose, Throat: hearing grossly normal, normal ENT inspection Neck: full range of motion, supple Respiratory: no respiratory distress, no accessory muscle use, rhonchi, wheezing Cardiovascular/Chest: normal peripheral pulses, regular rate, rhythm, no edema Peripheral Pulses: radial,right: 2+, radial,left: 2+ Gastrointestinal/Abdominal: non tender, soft Rectal Exam: deferred Back Exam: no CVA tenderness, no vertebral tenderness Extremity: normal range of motion, non-tender, normal inspection, no pedal edema, normal capillary refill 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 Additionally she will be written for her Flovent inhaler. She will also be placed on 5 days of low-dose oral prednisone. She needs to increase her albuterol treatments to 1 treatment every 3 hours for the next 2 or 3 days. ER warnings are given. ayse [id number] - Results/Orders Results/Orders: cxr shows no acute pathology. flu negative Departure - Departure Clinical Impression: Asthma with exacerbation Qualifiers: Asthma severity: moderate Asthma persistence: persistent Qualified Code(s): J45.41 - Moderate persistent asthma with (acute) exacerbation Disposition: Discharge to Home or Self Care Condition: Fair Departure Forms: ED Discharge - Pt. Copy, Patient Portal Self Enrollment Instructions: DI for Asthma -- Adult Diet: regular diet Activity: increase activity as tolerated Prescriptions: Azithromycin 500 mg PO DAILY #5 tab Fluticasone Propionate Inhaler [Flovent 220 MCG Inhaler] 1 puff INH BID #1 inh predniSONE [Prednisone] 20 mg PO DAILY #5 tab Home Medications: Ambulatory Orders Azithromycin 500 mg PO DAILY #5 tab 07/13/19 predniSONE [Prednisone] 20 mg PO DAILY #5 tab 07/13/19 Azithromycin 500 mg PO DAILY #5 tab 10/28/19 Fluticasone Propionate Inhaler [Flovent 220 MCG Inhaler] 1 puff INH BID #1 inh 10/28/19 predniSONE [Prednisone] 20 mg PO DAILY #5 tab 10/28/19 Additional Instructions: The patient is a 44-year-old female presented emergency room with what is ess entially an extended asthma exacerbation likely triggered initially either by viral or environmental circumstances, compounded by running out of her Flovent. 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 Additionally she will be written for her Flovent inhaler. She will also be placed on 5 days of low-dose oral prednisone. She needs to increase her albuterol treatments to 1 treatment every 3 hours for the next 2 or 3 days. ER warnings are given.
[2019-10-28 16:22] VITALS: BP 114/93; TEMP 98.8; O2SAT 99
== END 2019-10-28 16:22 | disposition home or self-care (01) ==
LOC: ER 14:57
DX: J45.41 Moderate persistent asthma with (acute) exacerbation (principal); R07.9 Chest pain, unspecified; G40.909 Epilepsy, unspecified, not intractable, without status epilepticus; I10 Essential (primary) hypertension; Z79.899 Other long term (current) drug therapy; Z88.8 Allergy status to other drugs, medicaments and biological substances; Z91.041 Radiographic dye allergy status
CPT/HCPCS: 71045; 87502; J7512; Q0144

== ENCOUNTER 2019-12-16 21:07 | Emergency (ER) | payer OTHER ==
[2019-12-16] MEDS ORDERED: ALUM & MAG HYDROX-SIMETHICONE 30 ML, LIDOCAINE VISCOUS 2% 15 ML PO ONE ×2 (21:23)
[2019-12-16] MEDS ORDERED: SODIUM CHLORIDE 0.9% (FLUSH) 10 ML SYG IV PRN (21:23)
[2019-12-16] MEDS ORDERED: ONDANSETRON INJ 4 MG/2 ML VIAL IV ONE (21:23)
[2019-12-16] MEDS ORDERED: ALUM & MAG HYDROX-SIMETHICONE 30 ML UD ONE (21:48)
[2019-12-16] MEDS ORDERED: LIDOCAINE HCL 2% (MOUTH-THROAT) 15 ML UD ONE (21:48)
--- NOTE | 2019-12-16 21:49 | ED.PDOC ---
History of Present Illness - General Chief Complaint: Chest Pain/[place] Stated Complaint: mid chest pain sine 1945, 10 wks preg Time Seen by Provider: 12/16/19 21:23 Source: patient, RN notes reviewed, Vital Signs reviewed, EMS notes reviewed, family Exam Limitations: no limitations - History of Present Illness Initial Comments: This is a 44-year-old female with history of hypertension, 10 weeks by dates, presenting to the emergency department with chest pain onset approximately 7 PM tonight while walking with her fianc. Pain was sudden onset. She localizes pain to the epigastric and lower retrosternal area, nonradiating, no shortness of breath, no vomiting. She denies any history of GERD or gastritis, no previous pain with prior . She is G2, . She sees Dr. Bateman, and was seen in the office today for a quant hCG. She denies any pelvic pain or vaginal bleeding. No urinary symptoms. No previous cardiac history. She denies any recent cough, shortness of breath, URI symptoms, recent traveling or known COVID-19 exposures. She denies any recent leg swelling, no history of DVT/PE. She received 4 baby aspirin in route with EMS Aspirin was not given in the emergency department due to being given prior to arrival with EMS Worsening Factors: nothing Nitro Today/Relief: no nitro taken today Aspirin Treatment Today: 81 mg x 4 Allergies/Adverse Reactions: Allergies Iodine Allergy (Verified 12/16/19 21:23) Lisinopril Allergy (Verified 12/16/19 21:23) Home Medications: Ambulatory Orders Albuterol Inhaler [Ventolin Hfa Inhaler] 108 mcg IN DAILY PRN 10/28/19 Budesonide-Formoterol Fumarate [Symbicort] 1 aer IN DAILY 10/28/19 Famotidine [Pepcid Tab] 20 mg PO BID #30 tab 12/16/19 Review of Systems - Review of Systems Constitutional: Denies: chills, fever EENTM: Denies: double vision, nose pain, throat pain Respiratory: Denies: cough, orthopnea, short of breath, stridor Cardiology: States: chest pain. Denies: edema, syncope Gastrointestinal/Abdominal: Denies: abdominal pain, constipation, diarrhea, nausea, vomiting Genitourinary: Denies: dysuria, frequency, hematuria Musculoskeletal: Denies: back pain, joint pain, neck pain Skin: Denies: lesions, rash Neurological: Denies: headache, paresthesia, tingling, tremors Endocrine: States: no symptoms reported Hematologic/Lymphatic: States: no symptoms reported Past Medical History (General) - Patient Medical History Hx Seizures: Yes - Epileptic, last seizure was 5 years ago Hx Stroke: No Hx Dementia: No Hx Asthma: Yes Hx of COPD: No Hx Cardiac Disorders: Yes - Pt states she has an enlarged heart Hx Congestive Heart Failure: No Hx Pacemaker: No Hx Hypertension: Yes - doesn't take meds at this time Hx Thyroid Disease: No Hx Diabetes: No Hx Gastroesophageal Reflux: No Hx Renal Disease: No Hx Cancer: No Hx of HIV: No Hx Hepatitis C: No Hx MRSA: No Surgical History: cholecystectomy - Vaccination History Hx Tetanus, Diphtheria Vaccination: Yes Hx Influenza Vaccination: No Hx Pneumococcal Vaccination: No - Social History Hx Tobacco Use: No Hx Chewing Tobacco Use: No Hx Alcohol Use: No Hx Substance Use: No Hx Substance Use Treatment: No Hx Depression: No Hx Physical Abuse: No Hx Emotional Abuse: No Hx Suspected Abuse: No - Female History Hx Last Menstrual Period: 02/13/19 Patient : No Family Medical History - Family History Mother Family History: Unknown Living Status: Hx Family Asthma: Yes - brothers Hx Cardiac Disease: Yes - brother Hx Family Cancer: Yes Hx Family;Other: Father of [place] Physical Exam - Physical Exam General Appearance: Alert, Comfortable, No apparent distress Eyes, Ears, Nose, Throat Exam: PERRL/EOMI, normal ENT inspection, TMs normal Neck: non-tender, full range of motion, supple Respiratory: chest non-tender, lungs clear, normal breath sounds, no respiratory distress, no accessory muscle use Cardiovascular/Chest: normal peripheral pulses, regular rate, rhythm, no edema, no gallop, no JVD, no murmur Peripheral Pulses: radial,right: 2+, radial,left: 2+, dorsalis pedis,right: 2+, dorsalis pedis,left: 2+ Gastrointestinal/Abdominal: non tender, soft Extremity: normal range of motion, non-tender, normal inspection, no pedal edema, no calf tenderness Neurologic: no motor/sensory deficits, alert, normal mood/affect, oriented x 3 Skin Exam: normal color, warm/dry Progress - Progress Progress: 12/16/19 22:09 Rechecked. Patient reports complete relief after GI cocktail. EKG without ischemic changes, initial troponin negative. Suspect GI etiology. Will repeat troponin, if negative will discharge home with GERD warnings 12/16/19 23:46 Patient remains pain-free. No shortness of breath. Sats normal, vital signs normal. Strongly suspect GI source for her pain. Chest x-ray was interpreted as possible early pulmonary edema, although sats are normal and BNP is completely normal. Very low suspicion for CHF/cardiomyopathy in . Will start H2 magnolia and lifestyle modifications for GERD. Recommended follow- up with PCP in 3 to 5 days for recheck and for ongoing management of her . Strict warnings given to return the emergency room for worsening chest pain, shortness of breath, vomiting blood, blood in stool, fever, vaginal bleeding, or any other concerns. MDM: DDX: ACS, GERD, CHF, pneumonia, cardiomyopathy Patient reporting epigastric and lower chest pain in the setting of 10-week . Heart score is 1, low risk. Troponin negative x2. BNP normal. No clear acute process on chest x-ray. Pain completely resolved with a GI cocktail, strongly suspect GERD is most likely etiology for her symptoms. Will start H2 magnolia. Recommended follow-up with PCP/DRAMA CRITIC for ongoing observation and management of Ariel Warner DO [facility] #[id number] - Results/Orders Results/Orders: EKG reviewed by me at 2114. Normal sinus rhythm, rate of 81, normal axis, normal intervals, no ST segment elevations or depressions Chest x-ray reviewed personally by me at 2154. No acute process, no pneumothorax, no infiltrates EXAM DESCRIPTION: Chest,1 View CLINICAL HISTORY: 44 years Female chest pain COMPARISON: None TECHNIQUE: AP view of the chest was obtained. FINDINGS: Cardiac silhouette is enlarged. Central vessels are increased and indistinct. Patchy airspace opacity right lung base. No abnormal airspace opacity on left. No effusions bilaterally. No pneumothorax. IMPRESSION: Enlarged heart with bilateral perihilar infiltrate and atelectatic change. Developing pulmonary edema versus inflammatory process could have this appearance. Electronically signed by: Bhargavi Carbajal MD 12/16/2019 10:03 PM CDT 12/16/19 21:23 IV Care:Saline Lock per Protoc QSHIFT Telemetry .ONCE EKG Stat Pulse Ox Stat Laboratory Results - last 24 hr 12/16/19 12/16/19 12/16/19 21:23 21:32 21:32 WBC 7.8 RBC 4.76 Hgb 12.9 Hct 38.9 MCV 81.7 MCH 27.0 MCHC 33.1 RDW 14.9 H Plt Count 276 MPV 7.8 Absolute Neuts (auto) 5.10 Absolute Lymphs (auto) 1.90 Absolute Monos (auto) 0.70 Absolute Eos (auto) 0.10 Absolute Basos (auto) 0.00 Neutrophils % 65.4 Lymphocytes % 23.9 Monocytes % 8.7 Eosinophils % 1.6 Basophils % 0.4 Sodium 134 L Potassium 4.1 Chloride 104 Carbon Dioxide 22 Anion Gap 12.1 BUN 14 Creatinine 0.80 BUN/Creatinine Ratio 17.5 Random Glucose 104 Serum Osmolality 269.0 L Calcium 9.5 Total Bilirubin 0.3 AST 27 ALT 34 Alkaline Phosphatase 63 Troponin I < 0.02 B-Natriuretic Peptide 24.1 Serum Total Protein 6.9 Albumin 3.7 Globulin 3.2 Albumin/Globulin Ratio 1.2 Lipase 35 12/16/19 23:15 WBC RBC Hgb Hct MCV MCH MCHC RDW Plt Count MPV Absolute Neuts (auto) Absolute Lymphs (auto) Absolute Monos (auto) Absolute Eos (auto) Absolute Basos (auto) Neutrophils % Lymphocytes % Monocytes % Eosinophils % Basophils % Sodium Potassium Chloride Carbon Dioxide Anion Gap BUN Creatinine BUN/Creatinine Ratio Random Glucose Serum Osmolality Calcium Total Bilirubin AST ALT Alkaline Phosphatase Troponin I < 0.02 B-Natriuretic Peptide Serum Total Protein Albumin Globulin Albumin/Globulin Ratio Lipase Departure - Departure Clinical Impression: Acute chest pain, GERD (gastroesophageal reflux disease), 10 weeks gestation of Disposition: Discharge to Home or Self Care Condition: Good Departure Forms: ED Discharge - Pt. Copy, Patient Portal Self Enrollment Instructions: DI for Chest Pain, Acid Reflux (Gastroesophageal Reflux Disease) During Referrals: Kenneth Bateman MD [Primary Care Provider] - 1-5 Days Prescriptions: Famotidine [Pepcid Tab] 20 mg PO BID #30 tab Home Medications: Ambulatory Orders Albuterol Inhaler [Ventolin Hfa Inhaler] 108 mcg IN DAILY PRN 10/28/19 Budesonide-Formoterol Fumarate [Symbicort] 1 aer IN DAILY 10/28/19 Famotidine [Pepcid Tab] 20 mg PO BID #30 tab 12/16/19 Additional Instructions: Avoid eating within 2 hours of lying down or going to bed. Avoid bending over within 1 to 2 hours of meals. Avoid caffeine, chocolate, as these can increase the frequency of GERD symptoms. Sleep on an incline at night. Return to emergency room for worsening chest pain, shortness of breath, vomiting blood, blood in stool, vaginal bleeding, or any other concerns.
--- NOTE | 2019-12-16 22:05 | RAD ---
EXAM DESCRIPTION: Chest,1 View CLINICAL HISTORY: 44 years Female chest pain COMPARISON: None TECHNIQUE: AP view of the chest was obtained. FINDINGS: Cardiac silhouette is enlarged. Central vessels are increased and indistinct. Patchy airspace opacity right lung base. No abnormal airspace opacity on left. No effusions bilaterally. No pneumothorax. IMPRESSION: Enlarged heart with bilateral perihilar infiltrate and atelectatic change. Developing pulmonary edema versus inflammatory process could have this appearance. Electronically signed by: Bhargavi Carbajal MD 12/16/2019 10:03 PM CDT
[2019-12-17] VITALS: BP 144/90; TEMP 98.5; O2SAT 97
== END 2019-12-17 | disposition home or self-care (01) ==
LOC: ER 21:07
DX: O99.611 Diseases of the digestive system complicating pregnancy, first trimester (principal); K21.9 Gastro-esophageal reflux disease without esophagitis; O99.351 Diseases of the nervous system complicating pregnancy, first trimester; O10.911 Unspecified pre-existing hypertension complicating pregnancy, first trimester; O99.511 Diseases of the respiratory system complicating pregnancy, first trimester; J45.909 Unspecified asthma, uncomplicated; R07.9 Chest pain, unspecified; Z3A.10 10 weeks gestation of pregnancy; Z79.899 Other long term (current) drug therapy; Z88.8 Allergy status to other drugs, medicaments and biological substances
CPT/HCPCS: 36415; 71045; 80053; 83690; 83880; 84484; 85025; 93005; J2405

== ENCOUNTER 2019-12-22 17:05 | Emergency (ER) | payer OTHER ==
--- NOTE | 2019-12-22 17:17 | ED.PDOC ---
History of Present Illness - General Time Seen by Provider: 12/22/19 17:12 Source: patient, RN notes reviewed, Vital Signs reviewed, EMS notes reviewed Exam Limitations: no limitations - History of Present Illness Initial Comments: Pt is a 44 yo female, , 3 months by dates with OB care by Dr. Bateman, who presents to ED for pelvic pain and vaginal bleeding. States she had an appointment with Dr. Bateman last week who did an US and stated there was a gestational sac, but no viable fetus and diagnosed with inevitable miscarriage. She was told she would miscarry within the next 2 weeks and would have vaginal bleeding and cramping. States 30 minutes [employer]OWLING [employer]LEY [employer], she had vaginal spotting and crampy pelvic pain and called EMS to come to ED. Denies having to wear a pad or bleeding on clothes. Denies fever, chills, NVD or urinary symptoms. Allergies/Adverse Reactions: Allergies Iodine Allergy (Verified 12/16/19 21:23) Lisinopril Allergy (Verified 12/16/19 21:23) Home Medications: Ambulatory Orders Albuterol Inhaler [Ventolin Hfa Inhaler] 108 mcg IN DAILY PRN 10/28/19 Budesonide-Formoterol Fumarate [Symbicort] 1 aer IN DAILY 10/28/19 Famotidine [Pepcid Tab] 20 mg PO BID #30 tab 12/16/19 Acetaminophen W/ Codeine [Tylenol W/ CODEINE #3] 1 tablet PO Q6H PRN #14 12/22/19 Review of Systems - Review of Systems Constitutional: Denies: chills, fever EENTM: Denies: ear pain, nose congestion Respiratory: Denies: cough, short of breath Cardiology: Denies: chest pain, edema, palpitations, syncope Gastrointestinal/Abdominal: Denies: diarrhea, nausea, vomiting Genitourinary: States: see HPI. Denies: dysuria, frequency, hematuria Neurological: Denies: headache, paresthesia All other Systems: Reviewed and Negative Past Medical History (General) - Patient Medical History Hx Seizures: Yes - Epileptic, last seizure was 5 years ago Hx Stroke: No Hx Dementia: No Hx Asthma: Yes Hx of COPD: No Hx Cardiac Disorders: Yes - Pt states she has an enlarged heart Hx Congestive Heart Failure: No Hx Pacemaker: No Hx Hypertension: Yes - doesn't take meds at this time Hx Thyroid Disease: No Hx Diabetes: No Hx Gastroesophageal Reflux: No Hx Renal Disease: No Hx Cancer: No Hx of HIV: No Hx Hepatitis C: No Hx MRSA: No - Vaccination History Hx Tetanus, Diphtheria Vaccination: Yes Hx Influenza Vaccination: No Hx Pneumococcal Vaccination: No - Social History Hx Tobacco Use: No Hx Chewing Tobacco Use: No Hx Alcohol Use: No Hx Substance Use: No Hx Substance Use Treatment: No Hx Depression: No Hx Physical Abuse: No Hx Emotional Abuse: No Hx Suspected Abuse: No - Female History Hx Last Menstrual Period: 02/13/19 Patient : No Family Medical History - Family History Mother Family History: Unknown Living Status: Hx Family Asthma: Yes - brothers Hx Cardiac Disease: Yes - brother Hx Family Cancer: Yes Hx Family;Other: Father of [place] Physical Exam - Physical Exam General Appearance: Alert, No apparent distress Neck: non-tender, full range of motion, supple Cardiovascular/Respiratory: regular rate, rhythm, normal breath sounds, no respiratory distress Gastrointestinal/Abdominal: other - soft. Mild TTP suprapubic area. No guarding Back Exam: no CVA tenderness Extremity: normal range of motion, non-tender, no pedal edema, no calf tendern ess Neurologic: no motor/sensory deficits, alert, normal mood/affect Skin Exam: normal color Progress - Progress Progress: 12/22/19 18:47 Pt presents with palvic crampy and vaginal spotting. has had OB care with Dr. Bateman and had US last week showing nonviable IUP and inevitable miscarriage. Pain is controlled. Labs reassuring. No sign of inection at this time.US not available today, I do not think imaging would change treatment. Will DC with T#3 and take Motrin for pain. i have asked her to f/u with her OB tomorrow for recheck. SRP given. - Results/Orders Results/Orders: 12/22/19 17:13 IV:Start .ONCE URINALYSIS Stat Laboratory Results - last 24 hr 12/22/19 12/22/19 17:26 17:26 WBC 6.6 RBC 4.74 Hgb 12.8 Hct 38.5 MCV 81.2 MCH 27.1 MCHC 33.4 RDW 15.1 H Plt Count 271 MPV 7.5 Absolute Neuts (auto) 4.40 Absolute Lymphs (auto) 1.30 Absolute Monos (auto) 0.60 Absolute Eos (auto) 0.20 Absolute Basos (auto) 0.00 Neutrophils % 67.6 Lymphocytes % 20.0 Monocytes % 9.1 H Eosinophils % 2.6 Basophils % 0.7 Sodium 134 L Potassium 3.7 Chloride 107 Carbon Dioxide 21 Anion Gap 9.7 L BUN 14 Creatinine 0.76 BUN/Creatinine Ratio 18.4 Random Glucose 109 H Serum Osmolality 269.3 L Calcium 8.9 Beta HCG, Quant 80471.0 H Departure - Departure Clinical Impression: Inevitable , Pelvic pain Time of Disposition: 18:51 Disposition: Discharge to Home or Self Care Condition: Good Instructions: Miscarriage (DC) Diet: resume usual diet Activity: increase activity as tolerated Referrals: Kenneth Bateman MD [Primary Care Provider] - 1-2 Days Prescriptions: Acetaminophen W/ Codeine [Tylenol W/ CODEINE #3] 1 tablet PO Q6H PRN #14 PRN Reason: Pain Home Medications: Ambulatory Orders Albuterol Inhaler [Ventolin Hfa Inhaler] 108 mcg IN DAILY PRN 10/28/19 Budesonide-Formoterol Fumarate [Symbicort] 1 aer IN DAILY 10/28/19 Famotidine [Pepcid Tab] 20 mg PO BID #30 tab 12/16/19 Acetaminophen W/ Codeine [Tylenol W/ CODEINE #3] 1 tablet PO Q6H PRN #14 12/22/19 Additional Instructions: Your HCG today is 21,600. Follow up with your OB in 1-2 days for recheck.
[2019-12-22 17:44] VITALS: TEMP 97.8
[2019-12-22] MEDS ORDERED: ONDANSETRON INJ 4 MG/2 ML VIAL IV ONE (17:57)
[2019-12-22] MEDS ORDERED: MORPHINE SULFATE INJ 10 MG/ML VIAL IV ONE (17:57)
[2019-12-22 18:48] VITALS: O2SAT 99
[2019-12-22 19:05] VITALS: BP 155/81
== END 2019-12-22 19:10 | disposition home or self-care (01) ==
LOC: ER 17:05
DX: O03.4 Incomplete spontaneous abortion without complication (principal)
CPT/HCPCS: 36415; 80048; 84702; 85025; J2270; J2405

== ENCOUNTER 2020-01-11 13:16 | Emergency (ER) | payer OTHER ==
[2020-01-11] MEDS ORDERED: PROMETHAZINE HCL INJ 25 MG/ML VIAL ONE (13:21)
[2020-01-11] MEDS ORDERED: ONDANSETRON INJ 4 MG/2 ML VIAL ONE (13:22)
[2020-01-11] MEDS ORDERED: ONDANSETRON 4 MG TAB ONE (13:23)
[2020-01-11] MEDS ORDERED: SODIUM CHLORIDE 0.9% 50ML 50 ML ONE (13:23)
[2020-01-11] MEDS ORDERED: ONDANSETRON ODT 8 MG TAB ONE (13:26)
[2020-01-11] MEDS ORDERED: PROMETHAZINE HCL INJ 25 MG in SODIUM CHLORIDE 0.9% 50ML 50 ML IVPB ONE (13:34)
[2020-01-11] MEDS ORDERED: ONDANSETRON ODT 8 MG TAB SL ONE (13:34)
[2020-01-11] MEDS ORDERED: ACTIVATED CHARCOAL PELLETS 25 GM BTTL ONE (13:40)
--- NOTE | 2020-01-11 13:40 | RAD ---
EXAM DESCRIPTION: Chest,1 View CLINICAL HISTORY: 44 years Female, tylenol od COMPARISON: 12/16/2019 FINDINGS: The heart and mediastinum are within normal limits. The lung rojas are clear of active infiltrates. The pulmonary vascularity is unremarkable. No active pleural disease is present. IMPRESSION: 1. No active disease. Electronically signed by: Sal Singh MD 01/11/2020 1:39 PM CDT
[2020-01-11] MEDS ORDERED: ACTIVATED CHARCOAL PELLETS 25 GM BTTL PO ONE (13:45)
[2020-01-11] MEDS ORDERED: SODIUM CHLORIDE 0.9% 1000ML 1,000 ML IVS ONE (17:40)
--- NOTE | 2020-01-11 20:09 | ED.PDOC ---
History of Present Illness - General Chief Complaint: Drug or Alcohol Abuse Stated Complaint: overdose Time Seen by Provider: 01/11/20 13:17 Source: patient, family Exam Limitations: no limitations - History of Present Illness Initial Comments: The patient is a 44-year-old female presenting after a overdose attempt. The patient reports that she took 55 tablets of 500 mg Tylenol. EMS arrived within 30 minutes of the ingestion and administered the first round of activated charcoal. She did largely throw this back up in transit. She received a second round of activated charcoal within about 20 minutes of arrival here. The patient reports that she took the Tylenol because her and her have been having arguments. The patient is cooperative here. She is crystal for safety here. It does not seem that the patient actually understood the severity of what she had done. No other previous suicide attempts. She denies any substance abuse. She is alert and oriented x4 and cooperative. No evidence of any other self-harm. is present after 30 minutes. Aside from being angry at her and reportedly being depressed, she is asymptomatic. She does have mild nausea. Timing/Duration: 1 hour Severity: severe Improving Factors: nothing Worsening Factors: nothing Associated Symptoms: denies symptoms Allergies/Adverse Reactions: Allergies Iodine Allergy (Verified 12/16/19 21:23) Lisinopril Allergy (Verified 12/16/19 21:23) Home Medications: Ambulatory Orders Amoxicillin & Pot Clavulanate [Augmentin Tab] 500 mg PO BID 01/11/20 Cephalexin Monohydrate [Keflex] 500 mg PO Q8H #15 cap 01/11/20 Ibuprofen 800 mg PO PRN 01/11/20 Review of Systems - Review of Systems Constitutional: States: no symptoms reported EENTM: States: no symptoms reported Respiratory: States: no symptoms reported Cardiology: States: no symptoms reported Gastrointestinal/Abdominal: States: nausea Genitourinary: States: no symptoms reported Musculoskeletal: States: no symptoms reported Skin: States: no symptoms reported Neurological: States: no symptoms reported Endocrine: States: no symptoms reported All other Systems: No Change from Baseline Past Medical History (General) - Patient Medical History Hx Seizures: Yes - Epileptic, last seizure was 5 years ago Hx Stroke: No Hx Dementia: No Hx Asthma: Yes Hx of COPD: No Hx Cardiac Disorders: Yes - Pt states she has an enlarged heart Hx Congestive Heart Failure: No Hx Pacemaker: No Hx Hypertension: Yes - doesn't take meds at this time Hx Thyroid Disease: No Hx Diabetes: No Hx Gastroesophageal Reflux: No Hx Renal Disease: No Hx Cancer: No Hx of HIV: No Hx Hepatitis C: No Hx MRSA: No Surgical History: cholecystectomy - Vaccination History Hx Tetanus, Diphtheria Vaccination: Yes Hx Influenza Vaccination: No Hx Pneumococcal Vaccination: No - Social History Hx Tobacco Use: Yes Hx Chewing Tobacco Use: No Hx Alcohol Use: No Hx Substance Use: No Hx Substance Use Treatment: No Hx Depression: No Hx Physical Abuse: No Hx Emotional Abuse: No Hx Suspected Abuse: No - Female History Hx Last Menstrual Period: 02/13/19 Patient : No Family Medical History - Family History Mother Family History: Unknown Living Status: Hx Family Asthma: Yes - brothers Hx Cardiac Disease: Yes - brother Hx Family Cancer: Yes Hx Family;Other: Father of [place] Physical Exam - Physical Exam General Appearance: Alert, Comfortable, No apparent distress Eye Exam: bilateral normal Ears, Nose, Throat: hearing grossly normal, normal pharynx Neck: full range of motion, supple Respiratory: lungs clear, normal breath sounds, no respiratory distress, no accessory muscle use Cardiovascular/Chest: normal peripheral pulses, regular rate, rhythm, no edema Peripheral Pulses: radial,right: 2+, radial,left: 2+, dorsalis pedis,right: 2+, dorsalis pedis,left: 2+ Gastrointestinal/Abdominal: non tender - Obese, soft Rectal Exam: deferred Back Exam: no CVA tenderness, no vertebral tenderness Extremity: normal range of motion, non-tender, normal inspection, no pedal edema, normal capillary refill 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[employer] II-XII nml as tested, alert, normal mood/affect - Mildly agitated, oriented x 3 Skin Exam: normal color - Charcoal staining around the mouth Comments: Vital Signs - 24 hr 01/11/20 01/11/20 01/11/20 13:49 14:19 15:21 Temperature 97.9 F Pulse Rate [ 79 71 53 L Left Ulnar] Respiratory 20 18 16 Rate Blood Pressure 147/94 133/85 116/89 [Left Arm] O2 Sat by Pulse 97 96 95 Oximetry 01/11/20 01/11/20 01/11/20 16:29 17:00 18:00 Temperature 97.5 F L Pulse Rate [ 59 L 63 59 L Left Ulnar] Respiratory 14 21 18 Rate Blood Pressure 127/77 143/89 129/83 [Left Arm] O2 Sat by Pulse 97 97 95 Oximetry 01/11/20 19:00 Temperature 98.3 F Pulse Rate [ 69 Left Ulnar] Respiratory 18 Rate Blood Pressure 129/82 [Left Arm] O2 Sat by Pulse 97 Oximetry Progress - Progress Progress: 01/11/20 20:11 The patient is a 44-year-old female presenting after an overdose attempt with approximately 27 g of Tylenol, if what she is reporting is the true amount. She received 2 rounds of activated charcoal. The patient has been monitored about 8 hours here. Initial acetaminophen level, acetaminophen level at 4 hours, and acetaminophen level at 6-1/2 hours after ingestion are all below the treatment line on the acetaminophen overdose nomogram. This is as per [facility] toxicology manual. The patient has talked with [facility] and has contracted for safety. Vital signs have remained stable. Laboratory work has remained stable. The patient miscarried a couple of weeks ago. Quantitative hCG was 115 here today. This does need to be followed with her [employer] in a month to make sure it has gone down to 0. The patient does have a small urinary tract infection and will be placed on 5 days of Keflex. Urine culture is being done. Keep follow-up with [facility]. ER warnings are given. ayse [id number] - Results/Orders Results/Orders: Laboratory Tests 01/11/20 01/11/20 01/11/20 13:25 13:41 13:41 WBC 6.0 RBC 4.74 Hgb 13.0 Hct 38.6 MCV 81.3 MCH 27.3 MCHC 33.6 RDW 14.6 H Plt Count 244 MPV 7.3 L Absolute Neuts (auto) 3.70 Absolute Lymphs (auto) 1.60 Absolute Monos (auto) 0.50 Absolute Eos (auto) 0.20 Absolute Basos (auto) 0.10 Neutrophils % 61.6 Lymphocytes % 26.2 Monocytes % 8.8 Eosinophils % 2.5 Basophils % 0.9 PT INR PTT (SP) Sodium 134 L Potassium 3.7 Chloride 104 Carbon Dioxide 22 Anion Gap 11.7 L BUN 13 Creatinine 0.85 BUN/Creatinine Ratio 15.3 Random Glucose 128 H Serum Osmolality 270.0 L Lactic Acid Calcium 8.4 Magnesium 1.8 Total Bilirubin 0.8 AST 28 ALT 31 Alkaline Phosphatase 73 Creatine Kinase 92 CK-MB (CK-2) 0.8 CK-MB (CK-2) % Not Reportable Troponin I < 0.02 B-Natriuretic Peptide 23.8 Serum Total Protein 6.7 Albumin 3.8 Globulin 2.9 Albumin/Globulin Ratio 1.3 Amylase 32 Lipase 30 Serum HCG, Qual Beta HCG, Quant Urine Color Urine Appearance Urine pH Ur Specific [place] Urine Protein Urine Glucose (UA) Urine Ketones Urine Blood Urine Nitrite Urine Bilirubin Urine Urobilinogen Ur Leukocyte Esterase Urine RBC Urine WBC Ur Epithelial Cells Urine Bacteria Urine Mucus Salicylates Urine Opiates Screen Negative Acetaminophen Urine Barbiturates Negative Ur Phencyclidine Scrn Negative U Amphetamin/Meth Scrn Negative U Benzodiazepines Scrn Negative U Cocaine Metab Screen Negative U Cannabinoids Screen Negative Ethyl Alcohol 01/11/20 01/11/20 01/11/20 13:41 13:41 13:41 WBC RBC Hgb Hct MCV MCH MCHC RDW Plt Count MPV Absolute Neuts (auto) Absolute Lymphs (auto) Absolute Monos (auto) Absolute Eos (auto) Absolute Basos (auto) Neutrophils % Lymphocytes % Monocytes % Eosinophils % Basophils % PT 10.1 INR 1.02 PTT (SP) 23.1 Sodium Potassium Chloride Carbon Dioxide Anion Gap BUN Creatinine BUN/Creatinine Ratio Random Glucose Serum Osmolality Lactic Acid 1.4 Calcium Magnesium Total Bilirubin AST ALT Alkaline Phosphatase Creatine Kinase CK-MB (CK-2) CK-MB (CK-2) % Troponin I B-Natriuretic Peptide Serum Total Protein Albumin Globulin Albumin/Globulin Ratio Amylase Lipase Serum HCG, Qual Beta HCG, Quant Urine Color Urine Appearance Urine pH Ur Specific [place] Urine Protein Urine Glucose (UA) Urine Ketones Urine Blood Urine Nitrite Urine Bilirubin Urine Urobilinogen Ur Leukocyte Esterase Urine RBC Urine WBC Ur Epithelial Cells Urine Bacteria Urine Mucus Salicylates Urine Opiates Screen Acetaminophen Urine Barbiturates Ur Phencyclidine Scrn U Amphetamin/Meth Scrn U Benzodiazepines Scrn U Cocaine Metab Screen U Cannabinoids Screen Ethyl Alcohol < 5.40 01/11/20 01/11/20 01/11/20 13:41 13:41 13:59 WBC RBC Hgb Hct MCV MCH MCHC RDW Plt Count MPV Absolute Neuts (auto) Absolute Lymphs (auto) Absolute Monos (auto) Absolute Eos (auto) Absolute Basos (auto) Neutrophils % Lymphocytes % Monocytes % Eosinophils % Basophils % PT INR PTT (SP) Sodium Potassium Chloride Carbon Dioxide Anion Gap BUN Creatinine BUN/Creatinine Ratio Random Glucose Serum Osmolality Lactic Acid Calcium Magnesium Total Bilirubin AST ALT Alkaline Phosphatase Creatine Kinase CK-MB (CK-2) CK-MB (CK-2) % Troponin I B-Natriuretic Peptide Serum Total Protein Albumin Globulin Albumin/Globulin Ratio Amylase Lipase Serum HCG, Qual Positive Beta HCG, Quant Urine Color Yellow Urine Appearance Sl cloudy Urine pH 7.0 Ur Specific [place] 1.025 Urine Protein 30 Urine Glucose (UA) Negative Urine Ketones Negative Urine Blood Trace-intact H Urine Nitrite Positive H Urine Bilirubin Negative Urine Urobilinogen 0.2 Ur Leukocyte Esterase Trace H Urine RBC 3-5 H Urine WBC 5-10 H Ur Epithelial Cells 5-10 Urine Bacteria 3+ H Urine Mucus Moderate Salicylates < 4.0 Urine Opiates Screen Acetaminophen 230.3 H Urine Barbiturates Ur Phencyclidine Scrn U Amphetamin/Meth Scrn U Benzodiazepines Scrn U Cocaine Metab Screen U Cannabinoids Screen Ethyl Alcohol 01/11/20 01/11/20 16:12 19:28 WBC RBC Hgb Hct MCV MCH MCHC RDW Plt Count MPV Absolute Neuts (auto) Absolute Lymphs (auto) Absolute Monos (auto) Absolute Eos (auto) Absolute Basos (auto) Neutrophils % Lymphocytes % Monocytes % Eosinophils % Basophils % PT INR PTT (SP) Sodium Potassium Chloride Carbon Dioxide Anion Gap BUN Creatinine BUN/Creatinine Ratio Random Glucose Serum Osmolality Lactic Acid Calcium Magnesium Total Bilirubin AST ALT Alkaline Phosphatase Creatine Kinase CK-MB (CK-2) CK-MB (CK-2) % Troponin I B-Natriuretic Peptide Serum Total Protein Albumin Globulin Albumin/Globulin Ratio Amylase Lipase Serum HCG, Qual Beta HCG, Quant 115.8 H Urine Color Urine Appearance Urine pH Ur Specific [place] Urine Protein Urine Glucose (UA) Urine Ketones Urine Blood Urine Nitrite Urine Bilirubin Urine Urobilinogen Ur Leukocyte Esterase Urine RBC Urine WBC Ur Epithelial Cells Urine Bacteria Urine Mucus Salicylates Urine Opiates Screen Acetaminophen 128.2 H 66.3 H Urine Barbiturates Ur Phencyclidine Scrn U Amphetamin/Meth Scrn U Benzodiazepines Scrn U Cocaine Metab Screen U Cannabinoids Screen Ethyl Alcohol EKG shows normal sinus rhythm at 65 bpm. Normal axis. Normal R wave progression. No ST segment or T wave changes indicative of acute ischemia. Normal QT interval. Mild left atrial dilation. Chest x-ray is grossly within normal limits. See report for details. Telemetry monitoring shows normal sinus rhythm. Departure - Departure Clinical Impression: Intentional acetaminophen overdose Qualifiers: Encounter type: initial encounter Qualified Code(s): T39.1X2A - Poisoning by 4- Aminophenol derivatives, intentional self-harm, initial encounter Urinary tract infection Qualifiers: Urinary tract infection type: acute cystitis Hematuria presence: without hematuria Qualified Code(s): N30.00 - Acute cystitis without hematuria Disposition: Discharge to Home or Self Care Condition: Fair Departure Forms: ED Discharge - Pt. Copy, Patient Portal Self Enrollment Diet: regular diet Activity: increase activity as tolerated Referrals: Kenneth Bateman MD [Primary Care Provider] - 1-5 Days Prescriptions: Cephalexin Monohydrate [Keflex] 500 mg PO Q8H #15 cap Home Medications: Ambulatory Orders Amoxicillin & Pot Clavulanate [Augmentin Tab] 500 mg PO BID 01/11/20 Cephalexin Monohydrate [Keflex] 500 mg PO Q8H #15 cap 01/11/20 Ibuprofen 800 mg PO PRN 01/11/20 Additional Instructions: The patient is a 44-year-old female presenting after an overdose attempt with Tylenol. She received 2 rounds of activated charcoal. The patient has been monitored about 8 hours here. Initial acetaminophen level, acetaminophen level at 4 hours, and acetaminophen level at 6-1/2 hours after ingestion are all below the treatment line on the acetaminophen overdose nomogram. The patient has talked with [facility] and has contracted for safety. Vital signs have remained stable. Laboratory work has remained stable. The patient miscarried a couple of weeks ago. Quantitative hCG was 115 here today. This does need to be followed with her [employer] in a month to make sure it has gone down to 0. The patient does have a small urinary tract infection and will be placed on 5 days of Keflex. Urine culture is being done. Keep follow-up with [facility]. ER warnings are given.
[2020-01-11 20:41] VITALS: BP 129/79; TEMP 97.5; O2SAT 96
== END 2020-01-11 20:41 | disposition home or self-care (01) ==
LOC: ER 13:16
DX: T39.1X2A Poisoning by 4-Aminophenol derivatives, intentional self-harm, initial encounter (principal); N30.00 Acute cystitis without hematuria; R11.2 Nausea with vomiting, unspecified; J45.909 Unspecified asthma, uncomplicated; I10 Essential (primary) hypertension; Y92.9 Unspecified place or not applicable
CPT/HCPCS: 36415; 71045; 80053; 80307; 80320; 80329; 81001; 82150; 82550; 82553; 83605; 83690; 83735; 83880; 84484; 84702; 84703; 85025; 85610; 85730; 87086; 93005; A4216; J2550; J7030

== ENCOUNTER 2020-02-08 13:38 | Emergency (ER) | payer OTHER ==
--- NOTE | 2020-02-08 13:59 | ED.PDOC ---
History of Present Illness - General Chief Complaint: Abdominal Pain Stated Complaint: Abdominal Pain Time Seen by Provider: 02/08/20 13:54 Information Source: patient Exam Limitations: no limitations - History of Present Illness Initial Comments: 44 y/o female reports severe abdominal pain after coughing today. She had fallen directly on her stomach 5 days ago and was sore but when she coughed today it became much worse. she has not been vomiting and has been able to eat. No blood in urine or stool. Abdominal Pain Onset Location: epigastric, periumbilical Pain Radiation: no radiation Quality: steady Timing/Duration: 1 week Improving Factors: nothing Worsening Factors: nothing Associated Symptoms: swelling/mass in abdomen Review of Systems - Review of Systems Constitutional: States: no symptoms reported EENTM: States: no symptoms reported Respiratory: States: no symptoms reported, other - she coughed only because she got choked on a drink of tea Cardiology: States: no symptoms reported Gastrointestinal/Abdominal: States: abdominal pain Genitourinary: States: no symptoms reported Musculoskeletal: States: no symptoms reported Skin: States: no symptoms reported Past Medical History (General) - Patient Medical History Hx Seizures: Yes - Epileptic, last seizure was 5 years ago Hx Stroke: No Hx Dementia: No Hx Asthma: Yes Hx of COPD: No Hx Cardiac Disorders: Yes - Pt states she has an enlarged heart Hx Congestive Heart Failure: No Hx Pacemaker: No Hx Hypertension: Yes - doesn't take meds at this time Hx Thyroid Disease: No Hx Diabetes: No Hx Gastroesophageal Reflux: No Hx Renal Disease: No Hx Cancer: No Hx of HIV: No Hx Hepatitis C: No Hx MRSA: No - Vaccination History Hx Tetanus, Diphtheria Vaccination: Yes Hx Influenza Vaccination: No Hx Pneumococcal Vaccination: No - Social History Hx Tobacco Use: Yes Hx Chewing Tobacco Use: No Hx Alcohol Use: No Hx Substance Use: No Hx Substance Use Treatment: No Hx Depression: No Hx Physical Abuse: No Hx Emotional Abuse: No Hx Suspected Abuse: No - Female History Hx Last Menstrual Period: 02/13/19 Patient : No Family Medical History - Family History Mother Family History: Unknown Living Status: Hx Family Asthma: Yes - brothers Hx Cardiac Disease: Yes - brother Hx Family Cancer: Yes Hx Family;Other: Father of PA Physical Exam - Physical Exam General Appearance: Alert, No apparent distress Eyes, Ears, Nose, Throat Exam: normal ENT inspection Neck: non-tender, full range of motion, supple, normal inspection Respiratory: chest non-tender, lungs clear, normal breath sounds, no respiratory distress Cardiovascular/Chest: regular rate, rhythm, no murmur Gastrointestinal/Abdominal: normal bowel sounds, soft, tenderness - just above the umbilicus Extremity: normal range of motion, non-tender Progress - Progress Progress: 02/08/20 15:33 Ct shows incarcerated hernia, will call Gen surgeon. Spoke with Dr King, he will see the patient in the ER 02/08/20 16:18 Dr King was able to reduce hernia in ER. He will see pt next week Departure - Departure Clinical Impression: Ventral hernia Qualifiers: Obstruction and gangrene presence: without obstruction or gangrene Qualified Code(s): K43.9 - Ventral hernia without obstruction or gangrene Disposition: Discharge to Home or Self Care Condition: Good Departure Forms: ED Discharge - Pt. Copy, Patient Portal Self Enrollment Instructions: DI for Abdominal Pain-Adult Referrals: Kenneth Bateman MD [Primary Care Provider] - 1-2 Weeks Home Medications: Ambulatory Orders Amoxicillin & Pot Clavulanate [Augmentin Tab] 500 mg PO BID 01/11/20 Cephalexin Monohydrate [Keflex] 500 mg PO Q8H #15 cap 01/11/20 Ibuprofen 800 mg PO PRN 01/11/20
[2020-02-08] MEDS ORDERED: SODIUM CHLORIDE 0.9% (FLUSH) 10 ML SYG IV PRN (14:02)
[2020-02-08] MEDS ORDERED: SODIUM CHLORIDE 0.9% 1000ML 1,000 ML IVS PRN (14:02)
[2020-02-08] MEDS ORDERED: ONDANSETRON INJ 4 MG/2 ML VIAL IV ONE (14:02)
--- NOTE | 2020-02-08 15:14 | CT ---
EXAM DESCRIPTION: Abdoment/Pelvis w/o Contrast CLINICAL HISTORY: trauma COMPARISON: None Available TECHNIQUE: Contiguous axial images of the abdomen and pelvis were obtained followed by reconstruction images. This exam was performed according to our departmental dose-optimization program, which includes automated exposure control, adjustment of the mA and/or kV according to patient size and/or use of iterative reconstruction technique. FINDINGS: There is an anterior abdominal wall hernia superior to the umbilicus containing a small bowel loop. There is dilatation of small bowel loops proximal and within the hernia suspicious for an incarcerated hernia. Patient is status post cholecystectomy. There is a nonobstructive stone within the left kidney. There is atherosclerosis. The liver, spleen, pancreas and kidneys are otherwise within normal limits. There is no hydronephrosis.. Adrenal glands are within normal limits. Aorta is of normal caliber and tapering. There is no free fluid in the abdomen or pelvis There is no stranding of the mesenteric fat to suggest an inflammatory response. The appendix is within normal limits. There is no pericecal inflammation. IMPRESSION: Supraumbilical anterior abdominal wall hernia containing bowel components. Superimposed bowel obstruction with caliber transition at the level of the hernia worrisome for an incarcerated hernia. Electronically signed by: Kervin Meza MD 02/08/2020 3:13 PM CDT
[2020-02-08] MEDS ORDERED: MORPHINE SULFATE INJ 10 MG/ML VIAL IV ONE (15:58)
[2020-02-08 16:54] VITALS: BP 156/73; TEMP 98.5; O2SAT 100
--- NOTE | 2020-02-10 10:14 | CONS ---
DATE OF CONSULTATION: 02/08/20 REASON FOR CONSULTATION: Incarcerated hernia. HISTORY OF PRESENT ILLNESS: This is a 44-year-old obese woman who came to the Emergency Department after having abdominal pain after coughing and feeling a lump in her midabdomen. She had also fallen on the area 5 days ago and it had been sore, but apparently it was made worse today. She has had no nausea or vomiting, no fever or chills. This is the umbilical site where she had a previous laparoscopic cholecystectomy incision. PAST MEDICAL HISTORY: 1. Enlarged heart. 2. History of hypertension. She denies diabetes. FAMILY HISTORY: Her father had a myocardial infarction. SOCIAL HISTORY: She does smoke. She denies any significant alcohol, no drug use. REVIEW OF SYSTEMS: As above, in addition: CONSTITUTIONAL: No fevers, no chills. HEENT: No headache, visual changes, sore throat. RESPIRATORY: No cough or wheeze. CARDIOVASCULAR: No chest pain or palpitations. GASTROINTESTINAL: As above. GENITOURINARY: No frequency, dysuria or hematuria. EXTREMITIES: No complaints. PHYSICAL EXAMINATION: VITAL SIGNS: Afebrile. Vital signs are normal. GENERAL: The patient is conscious, awake, alert and well-oriented, in mild distress. HEENT: Normocephalic, atraumatic. Pupils equal and reactive. Sclerae anicteric. NECK: She is morbidly obese with no obvious thyromegaly. CHEST: Clear and equal bilaterally. HEART: Regular rate and rhythm. ABDOMEN: Obese, soft. There is a palpable incarcerated hernia superior to the umbilicus under a previous incision. No CVA tenderness. No rebound, no guarding. EXTREMITIES: No cyanosis, clubbing or edema. LABORATORY: White blood cell count 8. CMP normal. Urinalysis shows positive nitrites, 5 to 10 WBCs, 4+ bacteria. RADIOLOGY: A CT scan had been reported as an incarcerated umbilical hernia. IMPRESSION/PLAN: The ER called thinking she could possibly need surgery or transfer. I came in and examined the patient and explained to her the procedure, I want to try to reduce it, it is fairly acute, she does not show any signs of obstruction at this time, although the CT scan shows she will be, or any signs of ischemia. With some moderate effort and time, I was able to reduce the hernia. She got immediate relief. We discussed the slight chance that it could be ischemic bowel that was reduced, but in my experience I really doubt it at this time. Usually it is unreducible if it is that severe and that if she were to feel worse, she could come in from home or she could be admitted for observation. She opted to go home. This should repaired, so I would like to see her in the office next week where we can schedule elective surgical repair making this emergency now into elective situation. I notified the Emergency Room doctors she will be going home and then followup. #[id number] [id number]
== END 2020-02-08 16:45 | disposition home or self-care (01) ==
LOC: ER 13:38
DX: K43.9 Ventral hernia without obstruction or gangrene (principal); R10.33 Periumbilical pain; I10 Essential (primary) hypertension; F17.200 Nicotine dependence, unspecified, uncomplicated; G40.909 Epilepsy, unspecified, not intractable, without status epilepticus
CPT/HCPCS: 36415; 74176; 80048; 80076; 80329; 81001; 83690; 84703; 85025; 87086; J2270; J2405; J7030

== ENCOUNTER → 2020-04-03 | Outpatient (CLI) | payer OTHER ==
--- NOTE | 2020-04-07 09:02 | CT ---
EXAM: Abdoment/Pelvis w/o Contrast CLINICAL HISTORY: VENTRAL HERNIA COMPARISON STUDY: CT abdomen and pelvis from February 08, 2020. TECHNIQUE: Non-IV but post oral contrast CT images were obtained through the abdomen and pelvis. Coronal and sagittal reconstructions were acquired. FINDINGS: The visible portion of the chest shows clear lungs. The heart is not enlarged. The aorta is non-dilated. Solid organ evaluation is limited without IV contrast administration. The unenhanced images of the liver, spleen, pancreas, adrenal glands and kidneys demonstrate no acute abnormality. 2 mm calcification is seen in the lower pole of the left kidney. Small splenules are incidental findings. The gallbladder is absent. Bowel evaluation is limited without oral contrast administration. There is no bowel obstruction/dilatation. The appendix is visible and negative. There are no mesenteric inflammatory changes. There is a 2.7 cm ventral abdominal wall defect located 4.3 cm above the umbilicus. Mesenteric fat is herniated into the defect but no bowel. Pelvic structures are negative. There are no significant bone abnormalities. CONCLUSION: 1. 2.7 cm the ventral abdominal wall hernia containing mesenteric fat but no bowel. 3. 2 mm left lower pole intrarenal calculus without hydronephrosis. 3. No acute intra-abdominal/pelvic abnormality. This exam was performed according to our departmental dose-optimization program, which includes automated exposure control, adjustment of the mA and/or kV according to patient size and/or use of iterative reconstruction technique. . Electronically signed by: Andres Baltazar MD 04/07/2020 9:01 AM CDT
== END ==
LOC: CT 04-02 09:24
PROVIDERS: ATTEND Surgery
DX: K43.9 Ventral hernia without obstruction or gangrene (principal); N20.0 Calculus of kidney

== ENCOUNTER 2020-04-06 17:18 | Emergency (ER) | payer OTHER ==
[2020-04-06 17:42] VITALS: TEMP 96.3
[2020-04-06] MEDS ORDERED: HYDROcodone 7.5MG/APAP 325MG 1 EA TAB PO ONE (17:42)
--- NOTE | 2020-04-06 18:32 | ED.PDOC ---
History of Present Illness - General Chief Complaint: Abdominal Pain Stated Complaint: pain d/t hernia Time Seen by Provider: 04/06/20 17:35 Source: patient Exam Limitations: no limitations - History of Present Illness Initial Comments: The patient is a 44-year-old female presented emergency room secondary to pain in her ventral abdominal hernia site. She does have a palpable hernia there. She has had to have a reduced once before due to being incarcerated. No vomiting. No bloody stools. Appetite is normal. It started hurting her this morning again. No fever. No pain elsewhere. She does have a general surgeon in [place] and is getting set up for a hernia repair. Timing/Duration: other - 8 hours Severity: moderate Improving Factors: immobilization Worsening Factors: movement Associated Symptoms: denies symptoms Allergies/Adverse Reactions: Allergies Iodine Allergy (Verified 04/06/20 17:43) Lisinopril Allergy (Verified 04/06/20 17:43) Pneumococcal Vaccine Allergy (Verified 04/06/20 17:43) Review of Systems - Review of Systems Constitutional: States: no symptoms reported EENTM: States: no symptoms reported Respiratory: States: no symptoms reported Cardiology: States: no symptoms reported Gastrointestinal/Abdominal: States: abdominal pain Genitourinary: States: no symptoms reported Musculoskeletal: States: no symptoms reported Skin: States: no symptoms reported Neurological: States: no symptoms reported Endocrine: States: no symptoms reported All other Systems: No Change from Baseline Past Medical History (General) - Patient Medical History Hx Seizures: Yes - Epileptic, last seizure was 5 years ago Hx Stroke: No Hx Dementia: No Hx Asthma: Yes Hx of COPD: No Hx Cardiac Disorders: Yes - Pt states she has an enlarged heart Hx Congestive Heart Failure: No Hx Pacemaker: No Hx Hypertension: Yes - doesn't take meds at this time Hx Thyroid Disease: Yes Hx Diabetes: No Hx Gastroesophageal Reflux: No Hx Renal Disease: No Hx Cancer: No Hx of HIV: No Hx Hepatitis C: No Hx MRSA: No - Vaccination History Hx Tetanus, Diphtheria Vaccination: Yes Hx Influenza Vaccination: Yes Hx Pneumococcal Vaccination: No - allergic to pneumonia vaccine - Social History Hx Tobacco Use: Yes Hx Chewing Tobacco Use: No Hx Alcohol Use: No Hx Substance Use: No Hx Substance Use Treatment: No Hx Depression: Yes Hx Physical Abuse: No Hx Emotional Abuse: No Hx Suspected Abuse: No - Activities of Daily Living Hospice Agency (if applicable):: None - Female History Patient is a Female of Child Bearing Age (10 -59 yrs old): No Hx Last Menstrual Period: 02/13/19 Patient : No Family Medical History - Family History Mother Family History: Unknown Living Status: Hx Family Asthma: Yes - brothers Hx Cardiac Disease: Yes - brother Hx Family Cancer: Yes Hx Family;Other: Father of [place] Physical Exam - Physical Exam General Appearance: Alert, No apparent distress Eye Exam: bilateral normal Ears, Nose, Throat: hearing grossly normal, normal pharynx Neck: full range of motion, supple Respiratory: no respiratory distress, no accessory muscle use Cardiovascular/Chest: normal peripheral pulses, no edema Peripheral Pulses: radial,right: 2+, radial,left: 2+ Gastrointestinal/Abdominal: soft, other - See history of present illness. 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 She did have a mildly incarcerated loop of bowel initially but we were able to reduce it successfully with external pressure. The patient has been instructed on how to reduce them herself. Follow-up with her general surgeon in the very near future for repair. ER warnings are given for any evidence of obstruction. [id number] Departure - Departure Clinical Impression: Ventral hernia without obstruction or gangrene Disposition: Discharge to Home or Self Care Condition: Fair Departure Forms: ED Discharge - Pt. Copy, Patient Portal Self Enrollment Diet: regular diet Activity: increase activity as tolerated Referrals: Kenneth Bateman MD [Primary Care Provider] - 1-2 Weeks Additional Instructions: The patient is a 44-year-old female presenting to the emergency room secondary to pain in her ventral hernia site. She did have a mildly incarcerated loop of bowel initially but we were able to reduce it successfully with external pressure. The patient has been instructed on how to reduce them herself. Follow-up with her general surgeon in the very near future for repair. ER warnings are given for any evidence of obstruction
[2020-04-06 18:46] VITALS: BP 129/83; O2SAT 98
== END 2020-04-06 18:46 | disposition home or self-care (01) ==
LOC: ER 17:18
DX: K43.9 Ventral hernia without obstruction or gangrene (principal); F32.9 Major depressive disorder, single episode, unspecified; G40.909 Epilepsy, unspecified, not intractable, without status epilepticus; J45.909 Unspecified asthma, uncomplicated; I10 Essential (primary) hypertension; I51.9 Heart disease, unspecified; E07.9 Disorder of thyroid, unspecified; Z87.891 Personal history of nicotine dependence; Z88.7 Allergy status to serum and vaccine; Z91.041 Radiographic dye allergy status; Z88.8 Allergy status to other drugs, medicaments and biological substances

== ENCOUNTER 2020-04-07 20:47 | Emergency (ER) | payer OTHER ==
--- NOTE | 2020-04-07 21:23 | ED.PDOC ---
History of Present Illness - General Time Seen by Provider: 04/07/20 20:48 Source: patient - History of Present Illness Initial Comments: 44-year-old obese female with PMH of hypertension, GERD, status post cholecystectomy (2017), ventral abdominal hernia who presents with chief complaint of abdominal pain. Onset of pain this morning when she woke up, located just above her umbilicus, constant, diffusely dull but sharp at times, 10/10 severity currently, worse with flexion of abdominal wall musculature. She states it feels like her abdominal hernia has come out again. She was seen here last night for the same issue and her ventral abdominal hernia was reduced in the ED and her pain improved so she was discharged home. She states that she does have an appointment tomorrow with a general surgeon in [place] to see about scheduling repair of the hernia. She states she was able to reduce the hernia this morning but it came out again this afternoon and she has not been able to reduce it again. Reports she is having flatus small bowel movements for the past couple of days. Denies any fevers, chills, nausea/vomiting, diarrhea, urinary symptoms. She states she developed the hernia after her gallbladder surgery in 2016. It was diagnosed in November 2019. Allergies/Adverse Reactions: Allergies Iodine Allergy (Verified 04/06/20 17:43) Lisinopril Allergy (Verified 04/06/20 17:43) Pneumococcal Vaccine Allergy (Verified 04/06/20 17:43) Review of Systems - Review of Systems Review of Systems: 04/07/20 21:23 as per HPI All other Systems: Reviewed and Negative Past Medical History (General) - Patient Medical History Hx Seizures: Yes - Epileptic, last seizure was 5 years ago Hx Stroke: No Hx Dementia: No Hx Asthma: Yes Hx of COPD: No Hx Cardiac Disorders: Yes - Pt states she has an enlarged heart Hx Congestive Heart Failure: No Hx Pacemaker: No Hx Hypertension: Yes - doesn't take meds at this time Hx Thyroid Disease: Yes Hx Diabetes: No Hx Gastroesophageal Reflux: No Hx Renal Disease: No Hx Cancer: No Hx of HIV: No Hx Hepatitis C: No Hx MRSA: No - Vaccination History Hx Tetanus, Diphtheria Vaccination: Yes Hx Influenza Vaccination: Yes Hx Pneumococcal Vaccination: No - allergic to pneumonia vaccine - Social History Hx Tobacco Use: Yes Hx Chewing Tobacco Use: No Hx Alcohol Use: No Hx Substance Use: No Hx Substance Use Treatment: No Hx Depression: Yes Hx Physical Abuse: No Hx Emotional Abuse: No Hx Suspected Abuse: No - Female History Hx Last Menstrual Period: 02/13/19 Patient : No Family Medical History - Family History Mother Family History: Unknown Living Status: Hx Family Asthma: Yes - brothers Hx Cardiac Disease: Yes - brother Hx Family Cancer: Yes Hx Family;Other: Father of [place] Physical Exam - Physical Exam General Appearance: Alert, No apparent distress, Obese Ears, Nose, Throat: hearing grossly normal, normal ENT inspection Neck: non-tender, full range of motion, supple, normal inspection Respiratory: chest non-tender, lungs clear, normal breath sounds, no respiratory distress, no accessory muscle use Cardiovascular/Chest: normal peripheral pulses, regular rate, rhythm, no edema, no gallop, no murmur Gastrointestinal/Abdominal: normal bowel sounds, soft, no organomegaly, no pulsatile mass, other - approx 3x3 cm hernia appreciated above the umbilicus, soft, moderately tender, reduced with approx 5 mins constant gentle pressure under US guidance Back Exam: normal inspection, no CVA tenderness, no vertebral tenderness Extremity: normal range of motion, non-tender, normal inspection, no pedal edema Neurologic: no motor/sensory deficits, alert, normal mood/affect, oriented x 3 Skin Exam: normal color, warm/dry Progress - Progress Progress: 04/07/20 21:25 Abdominal pain -Appears consistent with ventral abdominal wall hernia. Pain is markedly improved with reduction in the ED. Given pain improvement, it is unlikely there is any strangulation. Review of CT imaging of the abdomen and pelvis from 04/03/2020 reveals 2.7 cm ventral abdominal wall hernia containing mesenteric fat but no loops of bowel. -We will have patient lie supine view and place cold pack to hernia site and reassess in 30 minutes. If pain remains resolved will discharge to home with strict ED return precautions. 04/07/20 21:56 -Patient got up from the bed even though she was instructed not to in order to use the restroom and her hernia pain came back again. I was able to reduce it once again at the bedside and her pain is now resolved. I instructed her to lie flat for another 20 minutes and will reassess. Plan will be to discharge home in stable condition and keep her appointment with general surgery clinic tomorrow. She otherwise remained stable, blood pressure is improved to 130s/80s. Jesus Concepcion MD Billing #[id number] Departure - Departure Clinical Impression: Ventral hernia without obstruction or gangrene Time of Disposition: 21:58 Disposition: Discharge to Home or Self Care Condition: Good Instructions: Abdominal Hernia (DC) Diet: other - high fiber diet Activity: other - avoid increases in abdominal pressure, flexion of abdominal muscles which may cause hernia to come out again Referrals: Kenneth Bateman MD [Primary Care Provider] - 1-2 Weeks Additional Instructions: Follow-up closely with general surgery in the clinic for further evaluation of abdominal wall hernia and abdominal pain. Continue to take [id number] medications as needed such as ibuprofen 600 mg every 6 hours and Tylenol 650 mg every 6 hours. Return to the ED if you develop any concerning symptoms such as unable to reduce hernia at home with constant pressure and gentle massaging motion as instructed while lying on your back. Return also for any other concerning symptoms present such as worsening abdominal pain, inability to pass gas, intractable nausea vomiting, fevers, chills, blood in the stool or urine, etc. Also follow-up with your primary care physician is recommended in the next 1 to 2 weeks for repeat evaluation of your chronic medical issues and for medication refills.
[2020-04-07] MEDS ORDERED: ACETAMINOPHEN W/COD #3 TAB (ER Disp) PO ONE (21:55)
[2020-04-07 22:14] VITALS: O2SAT 97
[2020-04-07 22:16] VITALS: BP 147/89; TEMP 97.6
== END 2020-04-07 22:05 | disposition home or self-care (01) ==
LOC: ER 20:47
DX: K43.9 Ventral hernia without obstruction or gangrene (principal); E07.9 Disorder of thyroid, unspecified; I10 Essential (primary) hypertension; J45.909 Unspecified asthma, uncomplicated; G40.909 Epilepsy, unspecified, not intractable, without status epilepticus; F32.9 Major depressive disorder, single episode, unspecified; Z87.891 Personal history of nicotine dependence; Z88.7 Allergy status to serum and vaccine; Z91.041 Radiographic dye allergy status; Z88.8 Allergy status to other drugs, medicaments and biological substances

== ENCOUNTER 2020-07-20 15:19 | Emergency (ER) | payer OTHER, SELFPAY ==
[2020-07-20] MEDS ORDERED: methylPREDNISolone SODIUM SUC 125 MG/2 ML VIAL IV ONE (15:24)
[2020-07-20] MEDS ORDERED: diphenhydrAMINE HCL 50 MG/ML VIAL IV ONE (15:24)
[2020-07-20] MEDS ORDERED: SODIUM CHLORIDE 0.9% 500ML 500 ML IVS ONE (15:25)
--- NOTE | 2020-07-20 15:28 | ED.PDOC ---
History of Present Illness - General Time Seen by Provider: 07/20/20 15:24 Source: patient - History of Present Illness Initial Comments: Patient seen immediately upon ED arrival at 1520. 44-year-old female with past medical history of asthma, history of anaphylaxis to bee stings who presents with chief complaint of bee sting and throat swelling. Reports she was stung by a bee approximately 40 minutes ago. She complains of sensation of swelling throughout her throat and trouble talking, rapidly worsened after the bee sting, no medications taken prior to arrival. She denies any other acute symptoms. Denies chest pain, dyspnea, abdominal pain, nausea/vomiting, fevers, chills, coughing. Reports last bee sting was 5 years ago with anaphylaxis at that time. She does not carry an EpiPen. Allergies/Adverse Reactions: Allergies Iodine Allergy (Verified 07/20/20 15:34) Lisinopril Allergy (Verified 07/20/20 15:34) Pneumococcal Vaccine Allergy (Verified 07/20/20 15:34) Bee Venom Adverse Reaction (Verified 07/20/20 15:34) Review of Systems - Review of Systems Review of Systems: 07/20/20 15:27 as per HPI All other Systems: Reviewed and Negative Past Medical History (General) - Patient Medical History Hx Seizures: Yes - Epileptic, last seizure was 5 years ago Hx Stroke: No Hx Dementia: No Hx Asthma: Yes Hx of COPD: No Hx Cardiac Disorders: Yes - Pt states she has an enlarged heart Hx Congestive Heart Failure: No Hx Pacemaker: No Hx Hypertension: Yes - doesn't take meds at this time Hx Thyroid Disease: Yes Hx Diabetes: No Hx Gastroesophageal Reflux: No Hx Renal Disease: No Hx Cancer: No Hx of HIV: No Hx Hepatitis C: No Hx MRSA: No - Vaccination History Hx Tetanus, Diphtheria Vaccination: Yes Hx Influenza Vaccination: Yes Hx Pneumococcal Vaccination: No - allergic to pneumonia vaccine - Social History Hx Tobacco Use: Yes Hx Chewing Tobacco Use: No Hx Alcohol Use: No Hx Substance Use: No Hx Substance Use Treatment: No Hx Depression: Yes Hx Physical Abuse: No Hx Emotional Abuse: No Hx Suspected Abuse: No - Female History Hx Last Menstrual Period: 02/13/19 Patient : No Family Medical History - Family History Mother Family History: Unknown Living Status: Hx Family Asthma: Yes - brothers Hx Cardiac Disease: Yes - brother Hx Family Cancer: Yes Hx Family;Other: Father of [place] Physical Exam - Physical Exam General Appearance: Alert, Comfortable, No apparent distress Eye Exam: bilateral normal Ears, Nose, Throat: hearing grossly normal, normal ENT inspection, other - no noted angioedema or swelling to tongue, throat, oral mucosa Neck: full range of motion, normal inspection Respiratory: chest non-tender, lungs clear, normal breath sounds, no respiratory distress, no accessory muscle use, other - Normal clear breath sounds throughout, speaking normally in no distress Cardiovascular/Chest: normal peripheral pulses, regular rate, rhythm, no edema, no gallop, no JVD, no murmur Peripheral Pulses: radial,right: 2+, radial,left: 2+ Gastrointestinal/Abdominal: non tender, soft, no organomegaly Back Exam: normal inspection Extremity: normal range of motion, non-tender, normal inspection, no pedal edema, no calf tenderness, normal capillary refill 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 Patient appears stable with intact airway. Will have EpiPen ready in case of evidence of edema or airway compromise. Place PIV, stat Solu-Medrol 125 mg IV, Benadryl 50 mg IV. Bedside EKG. 07/20/20 17:19 -Patient has remained stable in the ED, I have repeat evaluated her every 10 to 15 minutes for the past 2 hours. She has developed no signs of angioedema or anaphylaxis. She reports she feels like she is breathing well and no further feeling of throat swelling. She reports she was just concerned given her history of severe reactions to insect stings so she wanted to get checked out. We will discharge her home safely at this time, return warnings discussed at length. Follow-up closely with PCP. Jesus Concepcion MD Billing #[id number] - EKG/XRAY/CT EKG: Sinus - Normal sinus rhythm, heart rate 75, no ST elevations or Q waves noted, axis normal, intervals normal, appears unchanged from 01/11/2020 EKG Departure - Departure Clinical Impression: Allergic reaction to bee sting Time of Disposition: 17:18 Disposition: Discharge to Home or Self Care Condition: Good Instructions: Insect Bites and Stings (DC), Anaphylaxis (DC) Diet: resume usual diet Activity: increase activity as tolerated Additional Instructions: Remain well-hydrated and gradually advance your diet and activity level as tolerated. Continue to take 25 to 50 mg of Benadryl every 4-6 hours as needed for itching or swelling or other allergic symptoms. Return to the ED if you develop concerning symptoms such as worsening throat swelling, shortness of breath, trouble breathing, etc. Otherwise follow-up closely with your primary care physician is recommended in the next 1 to 2 weeks for repeat evaluation or sooner as needed.
[2020-07-20 17:41] VITALS: BP 141/85; TEMP 97.5; O2SAT 99
== END 2020-07-20 17:30 | disposition home or self-care (01) ==
LOC: ER 15:19
DX: T63.441A Toxic effect of venom of bees, accidental (unintentional), initial encounter (principal); F32.9 Major depressive disorder, single episode, unspecified; G40.909 Epilepsy, unspecified, not intractable, without status epilepticus; I10 Essential (primary) hypertension; E07.9 Disorder of thyroid, unspecified; Z91.030 Bee allergy status; Z88.7 Allergy status to serum and vaccine; Z91.041 Radiographic dye allergy status; Z88.8 Allergy status to other drugs, medicaments and biological substances; Z87.891 Personal history of nicotine dependence
CPT/HCPCS: 93005; J7040